=== PATIENT | female | born 1950 | race American Indian/Alaskan Native ===

== ENCOUNTER 2019-04-03 19:25 | Inpatient (IN) | payer MEDICARE ==
--- NOTE | 2019-04-03 20:31 | Emergency Department Report ---
HPI - General Chief Complaint: Altered Mental Status Time Seen by Provider: 04/03/19 20:06 - HPI HPI: 68-year-old female presents to the emergency department via EMS from home, with her daughter at bedside, with the complaint of altered mental status, confusion, and concern for some psychosis. The patient does not have any diagnosed psychiatric history but has been "committed" in the past when she was living in [place] for some psychiatric issues. The patient also has a history of substance abuse in which she will use cocaine. EMS found Ambien and insulin at the home. The patient is currently confused, AAO [address] but not time. She is a poor historian and is displaying some rambling tangential thoughts/speech. She does have a history of insulin-dependent diabetes. ED Past Medical Hx - Past Medical History Previous Medical History?: Yes Hx Hypertension: Yes Additional medical history: chronic pain - Surgical History Past Surgical History?: Yes Additional Surgical History: hysterectomy - Social History Smoking Status: Never Smoker - Medications Home Medications: Home Medications Medication Instructions Recorded Confirmed Last Taken Type Aspirin [Aspirin BABY CHEW TAB] 81 mg PO QDAY 04/02/13 04/02/13 Unknown History Ibuprofen [Motrin 400 MG tab] 400 mg PO TID PRN #15 tablet 04/02/13 Unknown Rx Rosuvastatin (Nf) [Crestor] 10 mg PO QHS 04/02/13 04/02/13 Unknown History Sitagliptin Phos/Metformin HCl 1 tab PO QDAY 04/02/13 04/02/13 Unknown History [Janumet XR 50-500 mg] diazePAM TAB [Valium] 5 mg PO TID PRN #15 tablet 04/02/13 Unknown Rx oxyCODONE /ACETAMINOPHEN [Percocet 1 tab PO Q6HR PRN #15 tablet 04/02/13 Unknown Rx 5/325 mg] ED Review of Systems ROS: Stated complaint: AMS Other details as noted in HPI Comment: Unobtainable due to pts medical conditions Physical Exam - Physical Exam Vital Signs: Vital Signs 04/03/19 19:38 Temperature 99.2 F Pulse Rate 103 H Respiratory 22 Rate Blood Pressure 136/85 O2 Sat by Pulse 96 Oximetry Physical Exam: GENERAL: The patient is well-developed well-nourished. HENT: Normocephalic. Atraumatic. Patient has moist mucous membranes. EYES: Extraocular motions are intact. Pupils equal reactive to light bilaterally. NECK: Supple. Trachea is midline. CHEST/LUNGS: Clear to auscultation. There is no respiratory distress noted. HEART/CARDIOVASCULAR: Regular. There is no tachycardia. There is no murmur. ABDOMEN: Abdomen is soft, nontender. Patient has normal bowel sounds. There is no abdominal distention. SKIN: Skin is warm and dry. NEURO: The patient is awake and cooperative. They'll [address] but not time. No facial asymmetry. No pronator drift. No dysmetria. MUSCULOSKELETAL: There is no tenderness or deformity. There is no limitation range of motion. There is no evidence of acute injury. PSYCH: Patient has some rambling tangential thoughts and speech. ED Course Vital Signs 04/03/19 19:38 Temperature 99.2 F Pulse Rate 103 H Respiratory 22 Rate Blood Pressure 136/85 O2 Sat by Pulse 96 Oximetry - Reevaluation(s) Reevaluation #1: 04/04/19 00:06 Lab Results 04/03/19 04/03/19 04/03/19 Range/Units 20:26 20:26 20:26 WBC 8.1 (4.5-11.0) K/mm3 RBC 4.43 (3.65-5.03) M/mm3 Hgb 12.1 (10.1-14.3) gm/dl Hct 37.0 (30.3-42.9) % MCV 84 (79-97) fl MCH 27 L (28-32) pg MCHC 33 (30-34) % RDW 14.5 (13.2-15.2) % Plt Count 204 (140-440) K/mm3 Lymph % (Auto) 35.8 H (13.4-35.0) % [place] % (Auto) 8.2 H (0.0-7.3) % Eos % (Auto) 1.6 (0.0-4.3) % Baso % (Auto) 0.5 (0.0-1.8) % Lymph # 2.9 (1.2-5.4) K/mm3 [place] # 0.7 (0.0-0.8) K/mm3 Eos # 0.1 (0.0-0.4) K/mm3 Baso # 0.0 (0.0-0.1) K/mm3 Seg Neutrophils % 53.9 (40.0-70.0) % Seg Neutrophils # 4.4 (1.8-7.7) K/mm3 Sodium 137 (137-145) mmol/L Potassium 5.9 H (3.6-5.0) mmol/L Chloride 105.8 (98-107) mmol/L Carbon Dioxide 21 L (22-30) mmol/L Anion Gap 16 mmol/L BUN 20 H (7-17) mg/dL Creatinine 1.6 H (0.7-1.2) mg/dL Estimated GFR 39 ml/min BUN/Creatinine Ratio 13 % Glucose 136 H (65-100) mg/dL Calcium 9.3 (8.4-10.2) mg/dL Total Bilirubin (0.1-1.2) mg/dL Direct Bilirubin (0-0.2) mg/dL Indirect Bilirubin mg/dL AST (5-40) units/L ALT (7-56) units/L Alkaline Phosphatase (35-129) units/L Ammonia 56.0 (25-60) umol/L Troponin T (0.00-0.029) ng/mL Total Protein (6.3-8.2) g/dL Albumin (3.9-5) g/dL Albumin/Globulin Ratio % TSH (0.270-4.200) mlU/mL Salicylates (2.8-20.0) mg/dL Acetaminophen (10.0-30.0) ug/mL Plasma/Serum Alcohol (0-0.07) % 04/03/19 04/03/19 04/03/19 Range/Units 20:26 20:26 20:26 WBC (4.5-11.0) K/mm3 RBC (3.65-5.03) M/mm3 Hgb (10.1-14.3) gm/dl Hct (30.3-42.9) % MCV (79-97) fl MCH (28-32) pg MCHC (30-34) % RDW (13.2-15.2) % Plt Count (140-440) K/mm3 Lymph % (Auto) (13.4-35.0) % [place] % (Auto) (0.0-7.3) % Eos % (Auto) (0.0-4.3) % Baso % (Auto) (0.0-1.8) % Lymph # (1.2-5.4) K/mm3 [place] # (0.0-0.8) K/mm3 Eos # (0.0-0.4) K/mm3 Baso # (0.0-0.1) K/mm3 Seg Neutrophils % (40.0-70.0) % Seg Neutrophils # (1.8-7.7) K/mm3 Sodium (137-145) mmol/L Potassium (3.6-5.0) mmol/L Chloride (98-107) mmol/L Carbon Dioxide (22-30) mmol/L Anion Gap mmol/L BUN (7-17) mg/dL Creatinine (0.7-1.2) mg/dL Estimated GFR ml/min BUN/Creatinine Ratio % Glucose (65-100) mg/dL Calcium (8.4-10.2) mg/dL Total Bilirubin 0.40 (0.1-1.2) mg/dL Direct Bilirubin < 0.2 (0-0.2) mg/dL Indirect Bilirubin 0.2 mg/dL AST 43 H (5-40) units/L ALT 25 (7-56) units/L Alkaline Phosphatase 54 (35-129) units/L Ammonia (25-60) umol/L Troponin T < 0.010 (0.00-0.029) ng/mL Total Protein 8.0 (6.3-8.2) g/dL Albumin 4.0 (3.9-5) g/dL Albumin/Globulin Ratio 1.0 % TSH 0.026 L (0.270-4.200) mlU/mL Salicylates < 0.3 L (2.8-20.0) mg/dL Acetaminophen (10.0-30.0) ug/mL Plasma/Serum Alcohol (0-0.07) % 04/03/19 04/03/19 Range/Units 20:26 20:26 WBC (4.5-11.0) K/mm3 RBC (3.65-5.03) M/mm3 Hgb (10.1-14.3) gm/dl Hct (30.3-42.9) % MCV (79-97) fl MCH (28-32) pg MCHC (30-34) % RDW (13.2-15.2) % Plt Count (140-440) K/mm3 Lymph % (Auto) (13.4-35.0) % [place] % (Auto) (0.0-7.3) % Eos % (Auto) (0.0-4.3) % Baso % (Auto) (0.0-1.8) % Lymph # (1.2-5.4) K/mm3 [place] # (0.0-0.8) K/mm3 Eos # (0.0-0.4) K/mm3 Baso # (0.0-0.1) K/mm3 Seg Neutrophils % (40.0-70.0) % Seg Neutrophils # (1.8-7.7) K/mm3 Sodium (137-145) mmol/L Potassium (3.6-5.0) mmol/L Chloride (98-107) mmol/L Carbon Dioxide (22-30) mmol/L Anion Gap mmol/L BUN (7-17) mg/dL Creatinine (0.7-1.2) mg/dL Estimated GFR ml/min BUN/Creatinine Ratio % Glucose (65-100) mg/dL Calcium (8.4-10.2) mg/dL Total Bilirubin (0.1-1.2) mg/dL Direct Bilirubin (0-0.2) mg/dL Indirect Bilirubin mg/dL AST (5-40) units/L ALT (7-56) units/L Alkaline Phosphatase (35-129) units/L Ammonia (25-60) umol/L Troponin T (0.00-0.029) ng/mL Total Protein (6.3-8.2) g/dL Albumin (3.9-5) g/dL Albumin/Globulin Ratio % TSH (0.270-4.200) mlU/mL Salicylates (2.8-20.0) mg/dL Acetaminophen < 5.0 L (10.0-30.0) ug/mL Plasma/Serum Alcohol < 0.01 (0-0.07) % ED Medical Decision Making - Lab Data Result diagrams: 04/03/19 20:26 04/03/19 20:26 - EKG Data -: EKG Interpreted by Tn EKG shows normal: sinus rhythm, axis, intervals, QRS complexes, ST-T waves Rate: normal - EKG Data When compared to previous EKG there are: previous EKG unavailable Interpretation: normal EKG - Radiology Data Radiology results: report reviewed CT of the head does not show any acute intracranial process including no ischemia, shift, mass, bleeding or skull fracture. - Medical Decision Making This patient was brought in after she was found altered and on the ground. She is currently AAO 2 to person and placement at time. Patient has some undiagnosed psychiatric history as she has been committed to psychiatric facilities in [place]. Patient was found by her daughter responding to some internal stimuli. The patient does admit to some hallucinations. She also has some rambling tangential thoughts and speech. There is no focal motor or sensory or lateralizing deficits seen. CT scan of the head without contrast does not show any bleed, shift, mass, ischemia, or any other acute process. Allegedly she also has a history of some cocaine abuse but her UDS was negative. Labs show some renal insufficiency and hyperkalemia. Given some Kayexalate. W hile the patient does appear to require a psychiatric assessment, I am unable to medically clear her secondary to the altered mental status and renal insufficiency, which may be acute. Patient will be admitted to the hospital for further evaluation and treatment and was accepted for admission by the hospitalist, Dr. Rivera. - Differential Diagnosis substance abuse, psychosis, CVA, TIA, dysrhythmia Critical Care Time: No Critical care attestation.: If time is entered above; I have spent that time in minutes in the direct care of this critically ill patient, excluding procedure time. ED Disposition Clinical Impression: Hyperkalemia Altered mental status Qualifiers: Altered mental status type: unspecified Qualified Code(s): R41.82 - Altered mental status, unspecified Psychosis Qualifiers: Psychosis type: unspecified psychosis type Qualified Code(s): F29 - Unspecified psychosis not due to a substance or known physiological condition Acute renal failure Qualifiers: Acute renal failure type: unspecified Qualified Code(s): N17.9 - Acute kidney failure, unspecified Disposition: OP ADMIT IP TO THIS HOSP Is pt being admited?: Yes Condition: Fair Time of Disposition: 00:08
[2019-04-03 20:48] LABS: Basophils % (Auto) 0.5 % (0.0-1.8); Eosinophils # (Auto) 0.1 K/mm3 (0.0-0.4); Eosinophils % (Auto) 1.6 % (0.0-4.3); Hemoglobin 12.1 gm/dl (10.1-14.3); Lymphocytes # (Auto) 2.9 K/mm3 (1.2-5.4); Lymphocytes % (Auto) 35.8 % (13.4-35.0); Mean Corpuscular HGB Conc 33 % (30-34); Mean Corpuscular Volume 84 fl (79-97); Monocytes # (Auto) 0.7 K/mm3 (0.0-0.8); Monocytes % (Auto) 8.2 % (0.0-7.3); Platelet Count 204 K/mm3 (140-440); Red Blood Count 4.43 M/mm3 (3.65-5.03); Red Cell Distribution Width 14.5 % (13.2-15.2)
[2019-04-03 21:01] LABS: Calcium 9.3 mg/dL (8.4-10.2)
[2019-04-03 21:05] LABS: Alanine Aminotransferase 25 units/L (7-56)
[2019-04-03 21:07] LABS: Bilirubin,Direct < 0.2 mg/dL (0-0.2)
--- NOTE | 2019-04-03 21:27 | Cat Scan Report ---
CT head/brain wo con INDICATION: Altered mental status. TECHNIQUE: Routine CT head without contrast. All CT scans at this location are performed using CT dos e reduction for ALARA by means of automated exposure control. COMPARISON: None. FINDINGS: BRAIN / INTRACRANIAL CONTENTS: No acute hemorrhage, mass effect, midline shift, or hydrocephalus. No appreciable acute large territorial or lacunar infarct. No chronic infarct or focal atrophy. Normal b rain volume and ventricular/sulcal size for age. ORBITS: No significant abnormality of visualized orbits. SINUSES / MASTOIDS: There is a tiny mucous retention cyst in the left maxillary sinus. ADDITIONAL FINDINGS: None. IMPRESSION: 1. No acute intracranial abnormality. Signer Name: Rudy Cruz MD Signed: 04/03/2019 9:22 PM Workstation Name: [id number]
[2019-04-03] MEDS ORDERED: ONDANSETRON 4 MG/2 ML INJ IV PRN (23:01)
[2019-04-03 23:09] LABS: Bilirubin,Urine MOD (Negative); Blood,Urine NEG (Negative); Color,Urine Yellow (Yellow); Mucus,Urine FEW /HPF; Protein,Urine <15 mg/dL mg/dL (Negative); RBC,Urine < 1.0 /HPF (0.0-6.0)
[2019-04-03 23:10] LABS: Ictotest,Urine Positive (Negative)
--- NOTE | 2019-04-03 23:10 | History and Physical Report ---
<CHETAN ESQUIVEL - Last Filed: 04/04/19 04:35> History of Present Illness Date of examination: 04/03/19 Date of admission: 04/03/19 Chief complaint: acute encephalopathy History of present illness: Patient is a 68-year-old -[place] female presents to the emergency department with daughter. Daughter no longer bedside but reported altered mental status, confusion, and psychosis in patient. Per daughter the patient has an undiagnosed psychiatric history and has been committed in the past. Per daughter patient also has a history of substance abuse and cocaine use. Patient denies tobacco, alcohol, and current substance usage. Denies having used cocaine in the past, reports only marijuana usage in past. Patient reports only taking lodine for pain, 400 mg twice a day. Per ED report EMS found Ambien insulin patient's home. Per ED report daughter reports seeing a powdery substance around mother's nose. Urine drug screen negative for all substances and serum alcohol level normal. On exam patient is oriented to person and time. She does display somewhat rambling, unfocused thoughts/speech. She has a history of hypertension, hyperlipidemia, and diabetes. Past History Past Medical History: diabetes, hypertension, hyperlipidemia Social history: lives with family, other (history of cocaine abuse per family, patient reports only history of marijuana use) Medications and Allergies Allergies Allergy/AdvReac Type Severity Reaction Status Date / Time codeine Allergy Rash Verified 04/02/13 11:07 Home Medications Medication Instructions Recorded Confirmed Last Taken Type Aspirin [Aspirin BABY CHEW TAB] 81 mg PO QDAY 04/02/13 04/02/13 Unknown History Ibuprofen [Motrin 400 MG tab] 400 mg PO TID PRN #15 tablet 04/02/13 Unknown Rx Rosuvastatin (Nf) [Crestor] 10 mg PO QHS 04/02/13 04/02/13 Unknown History Sitagliptin Phos/Metformin HCl 1 tab PO QDAY 04/02/13 04/02/13 Unknown History [Janumet XR 50-500 mg] diazePAM TAB [Valium] 5 mg PO TID PRN #15 tablet 04/02/13 Unknown Rx oxyCODONE /ACETAMINOPHEN [Percocet 1 tab PO Q6HR PRN #15 tablet 04/02/13 Unknown Rx 5/325 mg] Active Meds: Active Medications Acetaminophen (Tylenol) 650 mg PO Q4H PRN PRN Reason: Pain MILD(1-3)/Fever >100.5/WILKINSON Ondansetron HCl (Zofran) 4 mg IV Q8H PRN PRN Reason: Nausea And Vomiting Sodium Chloride (Sodium Chloride Flush Syringe 10 Ml) 10 ml IV BID ANDREW Sodium Chloride (Sodium Chloride Flush Syringe 10 Ml) 10 ml IV PRN PRN PRN Reason: LINE FLUSH Review of Systems Constitutional: no fever, no chills, no sweats Cardiovascular: no chest pain, no palpitations Respiratory: no cough, no shortness of breath Gastrointestinal: no nausea, no vomiting, no diarrhea Musculoskeletal: low back pain (patient reporting pain in multiple locations but unable to get a focused answer as to where ), muscle weakness, other (patient reports a fall today, unable to give specifics of event ) Integumentary: other (patient has redness on face ) Neurological: weakness, lack of coordination, other (daughter reports change in mentation ) Exam - Constitutional Vitals: Temp Pulse Resp BP Pulse Ox 99.2 F 103 H 22 136/85 96 04/03/19 19:38 04/03/19 19:38 04/03/19 19:38 04/03/19 19:38 04/03/19 19:38 General appearance: Present: no acute distress, well-nourished - EENT Eyes: Present: PERRL, EOM intact - Respiratory Respiratory effort: normal Respiratory: bilateral: CTA - Cardiovascular Rhythm: regular - Extremities Extremities: pulses intact, No edema Peripheral Pulses: within normal limits - Abdominal General gastrointestinal: Present: soft - Rectal Rectal Exam: deferred - Integumentary Integumentary: Present: rash (redness to cheeks) - Musculoskeletal Musculoskeletal: strength equal bilaterally, generalized weakness - Psychiatric Psychiatric: no appropriate mood/affect (patient orientedx3. Has a rambling pattern of speech and gives unfocused answers to questions. ) Results - Labs CBC & Chem 7: 04/03/19 20:26 04/03/19 20:26 Labs: Laboratory Last Values WBC 8.1 K/mm3 (4.5-11.0) 04/03/19 20:26 RBC 4.43 M/mm3 (3.65-5.03) 04/03/19 20: Hgb 12.1 gm/dl (10.1-14.3) 04/03/19 20: Hct 37.0 % (30.3-42.9) 04/03/19 20: MCV 84 fl (79-97) 04/03/19 20: MCH 27 pg (28-32) L 04/03/19 20: MCHC 33 % (30-34) 04/03/19 20: RDW 14.5 % (13.2-15.2) 04/03/19 20: Plt Count 204 K/mm3 (140-440) 04/03/19 20: Lymph % (Auto) 35.8 % (13.4-35.0) H 04/03/19 20: [place] % (Auto) 8.2 % (0.0-7.3) H 04/03/19 20: Eos % (Auto) 1.6 % (0.0-4.3) 04/03/19 20: Baso % (Auto) 0.5 % (0.0-1.8) 04/03/19 20: Lymph # 2.9 K/mm3 (1.2-5.4) 04/03/19 20: [place] # 0.7 K/mm3 (0.0-0.8) 04/03/19 20: Eos # 0.1 K/mm3 (0.0-0.4) 04/03/19 20: Baso # 0.0 K/mm3 (0.0-0.1) 04/03/19 20: Seg Neutrophils % 53.9 % (40.0-70.0) 04/03/19 20: Seg Neutrophils # 4.4 K/mm3 (1.8-7.7) 04/03/19 20: Sodium 137 mmol/L (137-145) 04/03/19 20: Potassium 5.9 mmol/L (3.6-5.0) H 04/03/19 20: Chloride 105.8 mmol/L (98-107) 04/03/19 20: Carbon Dioxide 21 mmol/L (22-30) L 04/03/19 20:26 Anion Gap 16 mmol/L 04/03/19 20: BUN 20 mg/dL (7-17) H 04/03/19 20: Creatinine 1.6 mg/dL (0.7-1.2) H 04/03/19 20: Estimated GFR 39 ml/min 04/03/19 20: BUN/Creatinine Ratio 13 % 04/03/19 20: Glucose 136 mg/dL (65-100) H 04/03/19 20: Calcium 9.3 mg/dL (8.4-10.2) 04/03/19 20: Total Bilirubin 0.40 mg/dL (0.1-1.2) 04/03/19 20: Direct Bilirubin < 0.2 mg/dL (0-0.2) 04/03/19 20: Indirect Bilirubin 0.2 mg/dL 04/03/19: AST 43 units/L (5-40) H 04/03/19: ALT 25 units/L (7-56) 04/03/19 20: Alkaline Phosphatase 54 units/L (35-129) 04/03/19 20: Ammonia 56.0 umol/L (25-60) 04/03/19 20: Troponin T < 0.010 ng/mL (0.00-0.029) 04/03/19 20: Total Protein 8.0 g/dL (6.3-8.2) 04/03/19 20: Albumin 4.0 g/dL (3.9-5) 04/03/19 20: Albumin/Globulin Ratio 1.0 % 04/03/19 20: TSH 0.026 mlU/mL (0.270-4.200) L 04/03/19 20: Salicylates < 0.3 mg/dL (2.8-20.0) L 04/03/19 20: Acetaminophen < 5.0 ug/mL (10.0-30.0) L 04/03/19 20: Plasma/Serum Alcohol < 0.01 % (0-0.07) 04/03/19 20: - Imaging and Cardiology CT Scan - head: report reviewed, image reviewed (BRAIN / INTRACRANIAL CONTENTS: No acute hemorrhage, mass effect, midline shift, or hydrocephalus. ) Assessment and Plan Assessment and plan: Acute encephalopathy vs psychosis? -psych consult - undiagnosed mental health history, previously committed to facility in [place] -CT head negative - urine drug screen negative - serum alcohol level normal Hyperkalemia -recheck K level after kayexalate given, -15gm ordered x1 in Ed - K+ = 5.9 Renal insufficiency possible d/t dehydration - Creatinine 1.6 - BUN 20 - start NS at 100 ml/hr Diabetes mellitis -on oral medications, will hold inpatient d/t renal insufficiency - ACHS accuchecks - start on sliding scale insulin Hyperlipidemia - restart crestor Hypertension - will start on home regimen once home med rec done VTE prophylaxis?: Chemical (lovenox) <PING GREENE - Last Filed: 04/04/19 04:59> History of Present Illness Date of admission: 04/03/19 23:01 Medications and Allergies Active Meds: Active Medications Acetaminophen (Tylenol) 650 mg PO Q4H PRN PRN Reason: Pain MILD(1-3)/Fever >100.5/WILKINSON Aspirin (Baby Aspirin) 81 mg PO QDAY ANDREW Atorvastatin Calcium (Lipitor) 20 mg PO QHS ANDREW Dextrose (D50w (25gm) Syringe) 50 ml IV Q30MIN PRN PRN Reason: Hypoglycemia Enoxaparin Sodium (Enoxaparin) 40 mg SUB-Q QDAY@1000 ANDREW Famotidine (Pepcid) 20 mg PO BID ANDREW Sodium Chloride (Nacl 0.9% 1000 Ml) 1,000 mls @ 125 mls/hr IV DIRECT ANDREW Insulin Human Lispro (Humalog) 0 unit SUB-Q ACHS ANDREW; Protocol Ondansetron HCl (Zofran) 4 mg IV Q8H PRN PRN Reason: Nausea And Vomiting Sodium Chloride (Sodium Chloride Flush Syringe 10 Ml) 10 ml IV BID ANDREW Sodium Chloride (Sodium Chloride Flush Syringe 10 Ml) 10 ml IV PRN PRN PRN Reason: LINE FLUSH Exam - Constitutional Vitals: Temp Pulse Resp BP Pulse Ox 99.2 F 89 16 147/84 100 04/03/19 19:38 04/04/19 02:42 04/04/19 00:59 04/04/19 00:59 04/04/19 00:59 Results - Labs CBC & Chem 7: 04/03/19 20:26 04/03/19 20:26 Labs: Laboratory Last Values WBC 8.1 K/mm3 (4.5-11.0) 04/03/19 20:26 RBC 4.43 M/mm3 (3.65-5.03) 04/03/19 20: Hgb 12.1 gm/dl (10.1-14.3) 04/03/19 20: Hct 37.0 % (30.3-42.9) 04/03/19 20: MCV 84 fl (79-97) 04/03/19 20: MCH 27 pg (28-32) L 04/03/19 20: MCHC 33 % (30-34) 04/03/19 20: RDW 14.5 % (13.2-15.2) 04/03/19 20: Plt Count 204 K/mm3 (140-440) 04/03/19 20: Lymph % (Auto) 35.8 % (13.4-35.0) H 04/03/19 20: [place] % (Auto) 8.2 % (0.0-7.3) H 04/03/19 20: Eos % (Auto) 1.6 % (0.0-4.3) 04/03/19 20: Baso % (Auto) 0.5 % (0.0-1.8) 04/03/19 20: Lymph # 2.9 K/mm3 (1.2-5.4) 04/03/19 20: [place] # 0.7 K/mm3 (0.0-0.8) 04/03/19 20: Eos # 0.1 K/mm3 (0.0-0.4) 04/03/19 20: Baso # 0.0 K/mm3 (0.0-0.1) 04/03/19 20: Seg Neutrophils % 53.9 % (40.0-70.0) 04/03/19 20: Seg Neutrophils # 4.4 K/mm3 (1.8-7.7) 04/03/19 20: Sodium 137 mmol/L (137-145) 04/03/19 20: Potassium 5.9 mmol/L (3.6-5.0) H 04/03/19 20: Chloride 105.8 mmol/L (98-107) 04/03/19 20: Carbon Dioxide 21 mmol/L (22-30) L 04/03/19 20:26 Anion Gap 16 mmol/L 04/03/19 20:26 BUN 20 mg/dL (7-17) H 04/03/19 20:26 Creatinine 1.6 mg/dL (0.7-1.2) H 04/03/19 20:26 Estimated GFR 39 ml/min 04/03/19 20: BUN/Creatinine Ratio 13 % 04/03/19 20:26 Glucose 136 mg/dL (65-100) H 04/03/19 20:26 POC Glucose 187 (70-105) H 04/04/19 03:24 Calcium 9.3 mg/dL (8.4-10.2) 04/03/19 20: Total Bilirubin 0.40 mg/dL (0.1-1.2) 04/03/19 20: Direct Bilirubin < 0.2 mg/dL (0-0.2) 04/03/19 20: Indirect Bilirubin 0.2 mg/dL 04/03/19 20:26 AST 43 units/L (5-40) H 04/03/19 20:26 ALT 25 units/L (7-56) 04/03/19 20:26 Alkaline Phosphatase 54 units/L (35-129) 04/03/19 20: Ammonia 56.0 umol/L (25-60) 04/03/19 20: Troponin T < 0.010 ng/mL (0.00-0.029) 04/03/19 20:26 Total Protein 8.0 g/dL (6.3-8.2) 04/03/19 20: Albumin 4.0 g/dL (3.9-5) 04/03/19 20: Albumin/Globulin Ratio 1.0 % 04/03/19 20: TSH 0.026 mlU/mL (0.270-4.200) L 04/03/19 20:26 Urine Color Yellow (Yellow) 04/03/19 Unknown Urine Turbidity Clear (Clear) 04/03/19 Unknown Urine pH 5.0 (5.0-7.0) 04/03/19 Unknown Ur Specific [place] 1.011 (1.003-1.030) 04/03/19 Unknown Urine Protein <15 mg/dl mg/dL (Negative) 04/03/19 Unknown Urine Glucose (UA) Neg mg/dL (Negative) 04/03/19 Unknown Urine Ketones Neg mg/dL (Negative) 04/03/19 Unknown Urine Blood Neg (Negative) 04/03/19 Unknown Urine Nitrite Neg (Negative) 04/03/19 Unknown Urine Bilirubin Mod (Negative) 04/03/19 Unknown Urine Ictotest Positive (Negative) 04/03/19 Unknown Urine Urobilinogen 4.0 mg/dL (<2.0) 04/03/19 Unknown Ur Leukocyte Esterase Neg (Negative) 04/03/19 Unknown Urine WBC (Auto) 1.0 /HPF (0.0-6.0) 04/03/19 Unknown Urine RBC (Auto) < 1.0 /HPF (0.0-6.0) 04/03/19 Unknown U Epithel Cells (Auto) 1.0 /HPF (0-13.0) 04/03/19 Unknown Urine Mucus Few /HPF 04/03/19 Unknown Salicylates < 0.3 mg/dL (2.8-20.0) L 04/03/19 20:26 Urine Opiates Screen Presumptive negative 04/03/19 Unknown Urine Methadone Screen Presumptive negative 04/03/19 Unknown Acetaminophen < 5.0 ug/mL (10.0-30.0) L 04/03/19 20:26 Ur Barbiturates Screen Presumptive negative 04/03/19 Unknown Ur Phencyclidine Scrn Presumptive negative 04/03/19 Unknown Ur Amphetamines Screen Presumptive negative 04/03/19 Unknown U Benzodiazepines Scrn Presumptive negative 04/03/19 Unknown Urine Cocaine Screen Presumptive negative 04/03/19 Unknown U Marijuana (THC) Screen Presumptive negative 04/03/19 Unknown Drugs of Abuse Note Disclamer 04/03/19 Unknown Plasma/Serum Alcohol < 0.01 % (0-0.07) 04/03/19 20:26 Assessment and Plan Assessment and plan: 68-year-old with a history of hypertension, diabetes, hyperlipidemiav and depression was brought to the emergency room by her daughter because she's been acting strange. She stated that her mother is talking out of her head, talking to people next to her or not doing token today. Will. She has been committed several times in [place], she does not know a psych diagnosis to the patient carries. Consult psych, follow-up potassium level and start fluids.
[2019-04-03] MEDS ORDERED: SODIUM POLYSTYRENE 15 GM/60 ML ORAL LIQD PO ONE (23:11)
[2019-04-03 23:15] LABS: Amphetamine Screen,Urine PRESUMPTIVE NEGATIVE; Benzodiazepines Screen,Urine PRESUMPTIVE NEGATIVE; Cannabinoid Screen,Urine PRESUMPTIVE NEGATIVE; Cocaine Screen,Urine PRESUMPTIVE NEGATIVE; Methadone Screen,Urine PRESUMPTIVE NEGATIVE; Opiate Screen,Urine PRESUMPTIVE NEGATIVE
[2019-04-04] MEDS ORDERED: SODIUM POLYSTYRENE 15 GM/60 ML ORAL LIQD ONE (01:23)
[2019-04-04] MEDS ORDERED: DEXTROSE 50% IN WATER (25GM) 50 ML SYRINGE IV PRN (01:50)
[2019-04-04] MEDS ORDERED: SODIUM CHLORIDE 0.9% 1000 ML 1,000 ML IV SCH (02:00)
[2019-04-04] MEDS ORDERED: diazePAM 5 MG TAB PO PRN (04:57)
[2019-04-04] MEDS: ENOXAPARIN 40 MG/0.4 ML INJ SUB-Q SCH (09:24)
[2019-04-04] MEDS: INSULIN LISPRO 100 UNIT/ML SUB-Q SCH ×4 (09:25→22:22)
[2019-04-04] MEDS: SODIUM CHLORIDE 0.9% 1000 ML 1,000 ML IV SCH ×2 (09:25→22:18)
[2019-04-04] MEDS: FAMOTIDINE 20 MG TAB PO SCH ×2 (09:25→22:18)
[2019-04-04] MEDS: ASPIRIN 81 MG TAB CHEW PO SCH (09:25)
[2019-04-04 10:04] LABS: BUN/Creatinine Ratio 17; Blood Urea Nitrogen 19 mg/dL (7-17); Calcium 9.6 mg/dL (8.4-10.2); Hemolysis Index 9
[2019-04-04] MEDS ORDERED: FLU VACC QUAD 2019-20 (3 YR UP)/PF 60 MCG/0.5 ML SYRINGE IM ONE (12:00)
--- NOTE | 2019-04-04 14:20 | Progress Note ---
Assessment and Plan Assessment and plan: Acute encephalopathy vs psychosis - Mental has consult placed - Patient was alert and oriented this morning - No suicidal or homicidal ideation Hyperkalemia - Patient was given Kayexalate - Potassium this morning was normal KELLY due to vasomotor nephropathy - Creatinine 1.6 on admission and 1.1 this morning - Resolved Diabetes mellitis - Sliding-scale insulin coverage, ADA diet, accucheck, adjust insulin as needed Hyperlipidemia - restart crestor Hypertension - Patient started on amlodipine monitor and adjust as needed DVT prophylaxis -On Lovenox Disposition; after psych clearance. patient is medically stable. History Interval history: Patient was seen and followed this morning, patient didn't have any complaints. Denied any suicidal ideation. Hospitalist Physical - Physical exam Narrative exam: Not in cardiopulmonary distress. The patient appeared well nourished and normally developed. Vital signs as documented. Head exam is unremarkable. No scleral icterus . Neck is without jugular venous distension, thyromegaly, or carotid bruits. Lungs are clear to auscultation. Cardiac exam reveals regular rate and Rhythm. First and second heart sounds normal. No murmurs, rubs or gallops. Abdominal exam reveals normal bowel sounds, no masses, no organomegaly and no ao rtic enlargement. Extremities are nonedematous and both femoral and pedal pulses are normal. .NET PROGRAMMER: Alert and oriented 3. No focal weakness. - Constitutional Vitals: Temp Pulse Resp BP Pulse Ox 97.9 F 107 H 18 170/90 97 04/04/19 08:18 04/04/19 10:00 04/04/19 08:18 04/04/19 08:18 04/04/19 08:18 General appearance: Present: no acute distress, well-nourished Results - Labs CBC & Chem 7: 04/03/19 20:26 04/04/19 07:54 Labs: Laboratory Last Values WBC 8.1 K/mm3 (4.5-11.0) 04/03/19 20: RBC 4.43 M/mm3 (3.65-5.03) 04/03/19 20:26 Hgb 12.1 gm/dl (10.1-14.3) 04/03/19 20: Hct 37.0 % (30.3-42.9) 04/03/19 20: MCV 84 fl (79-97) 04/03/19 20: MCH 27 pg (28-32) L 04/03/19 20: MCHC 33 % (30-34) 04/03/19 20: RDW 14.5 % (13.2-15.2) 04/03/19 20:26 Plt Count 204 K/mm3 (140-440) 04/03/19 20: Lymph % (Auto) 35.8 % (13.4-35.0) H 04/03/19 20:26 [place] % (Auto) 8.2 % (0.0-7.3) H 04/03/19 20:26 Eos % (Auto) 1.6 % (0.0-4.3) 04/03/19 20: Baso % (Auto) 0.5 % (0.0-1.8) 04/03/19 20: Lymph # 2.9 K/mm3 (1.2-5.4) 04/03/19 20: [place] # 0.7 K/mm3 (0.0-0.8) 04/03/19 20: Eos # 0.1 K/mm3 (0.0-0.4) 04/03/19 20: Baso # 0.0 K/mm3 (0.0-0.1) 04/03/19 20: Seg Neutrophils % 53.9 % (40.0-70.0) 04/03/19 20: Seg Neutrophils # 4.4 K/mm3 (1.8-7.7) 04/03/19 20:26 Sodium 141 mmol/L (137-145) 04/04/19 07:54 Potassium 4.1 mmol/L (3.6-5.0) D 04/04/19 07:54 Chloride 104.1 mmol/L (98-107) 04/04/19 07:54 Carbon Dioxide 23 mmol/L (22-30) 04/04/19 07:54 Anion Gap 18 mmol/L 04/04/19 07:54 BUN 19 mg/dL (7-17) H 04/04/19 07:54 Creatinine 1.1 mg/dL (0.7-1.2) 04/04/19 07:54 Estimated GFR > 60 ml/min 04/04/19 07:54 BUN/Creatinine Ratio 17 % 04/04/19 07:54 Glucose 162 mg/dL (65-100) H 04/04/19 07:54 POC Glucose 189 (70-105) H 04/04/19 12:47 Hemoglobin A1c 7.8 % (4-6) H 04/04/19 07:54 Calcium 9.6 mg/dL (8.4-10.2) 04/04/19 07:54 Total Bilirubin 0.40 mg/dL (0.1-1.2) 04/03/19 20:26 Direct Bilirubin < 0.2 mg/dL (0-0.2) 04/03/19 20:26 Indirect Bilirubin 0.2 mg/dL 04/03/19 20:26 AST 43 units/L (5-40) H 04/03/19 20:26 ALT 25 units/L (7-56) 04/03/19 20:26 Alkaline Phosphatase 54 units/L (35-129) 04/03/19 20:26 Ammonia 56.0 umol/L (25-60) 04/03/19 20:26 Troponin T < 0.010 ng/mL (0.00-0.029) 04/03/19 20:26 Total Protein 8.0 g/dL (6.3-8.2) 04/03/19 20:26 Albumin 4.0 g/dL (3.9-5) 04/03/19 20:26 Albumin/Globulin Ratio 1.0 % 04/03/19 20:26 TSH 0.026 mlU/mL (0.270-4.200) L 04/03/19 20:26 Urine Color Yellow (Yellow) 04/03/19 Unknown Urine Turbidity Clear (Clear) 04/03/19 Unknown Urine pH 5.0 (5.0-7.0) 04/03/19 Unknown Ur Specific [place] 1.011 (1.003-1.030) 04/03/19 Unknown Urine Protein <15 mg/dl mg/dL (Negative) 04/03/19 Unknown Urine Glucose (UA) Neg mg/dL (Negative) 04/03/19 Unknown Urine Ketones Neg mg/dL (Negative) 04/03/19 Unknown Urine Blood Neg (Negative) 04/03/19 Unknown Urine Nitrite Neg (Negative) 04/03/19 Unknown Urine Bilirubin Mod (Negative) 04/03/19 Unknown Urine Ictotest Positive (Negative) 04/03/19 Unknown Urine Urobilinogen 4.0 mg/dL (<2.0) 04/03/19 Unknown Ur Leukocyte Esterase Neg (Negative) 04/03/19 Unknown Urine WBC (Auto) 1.0 /HPF (0.0-6.0) 04/03/19 Unknown Urine RBC (Auto) < 1.0 /HPF (0.0-6.0) 04/03/19 Unknown U Epithel Cells (Auto) 1.0 /HPF (0-13.0) 04/03/19 Unknown Urine Mucus Few /HPF 04/03/19 Unknown Salicylates < 0.3 mg/dL (2.8-20.0) L 04/03/19 20:26 Urine Opiates Screen Presumptive negative 04/03/19 Unknown Urine Methadone Screen Presumptive negative 04/03/19 Unknown Acetaminophen < 5.0 ug/mL (10.0-30.0) L 04/03/19 20:26 Ur Barbiturates Screen Presumptive negative 04/03/19 Unknown Ur Phencyclidine Scrn Presumptive negative 04/03/19 Unknown Ur Amphetamines Screen Presumptive negative 04/03/19 Unknown U Benzodiazepines Scrn Presumptive negative 04/03/19 Unknown Urine Cocaine Screen Presumptive negative 04/03/19 Unknown U Marijuana (THC) Screen Presumptive negative 04/03/19 Unknown Drugs of Abuse Note Disclamer 04/03/19 Unknown Plasma/Serum Alcohol < 0.01 % (0-0.07) 04/03/19 20:26 Active Medications - Current Medications Current Medications: Generic Name Dose Route Start Last Admin Trade Name Freq PRN Reason Stop Dose Admin Acetaminophen 650 mg 04/03/19 23:01 Tylenol PO Q4H PRN Pain MILD(1-3)/Fever >100.5/WILKINSON Aspirin 81 mg 04/04/19 10:00 04/04/19 09:25 Baby Aspirin PO 81 mg QDAY ANDREW Administration Atorvastatin Calcium 20 mg 04/04/19 22:00 Lipitor PO QHS ANDREW Dextrose 50 ml 04/04/19 01:50 D50w (25gm) Syringe IV Q30MIN PRN Hypoglycemia Diazepam 5 mg 04/04/19 04:57 Valium PO TID PRN PAIN Enoxaparin Sodium 40 mg 04/04/19 10:00 04/04/19 09:24 Enoxaparin SUB-Q 40 mg QDAY@1000 ANDREW Administration Famotidine 20 mg 04/04/19 10:00 04/04/19 09:25 Pepcid PO 20 mg BID ANDREW Administration Sodium Chloride 1,000 mls @ 125 mls/hr 04/04/19 02:00 04/04/19 09:25 Nacl 0.9% 1000 Ml IV 125 mls/hr DIRECT ANDREW Administration Insulin Human Lispro 0 unit 04/04/19 07:30 04/04/19 12:49 Humalog SUB-Q 1 unit ACHS ANDREW Administration Protocol Ondansetron HCl 4 mg 04/03/19 23:01 04/04/19 09:27 Zofran IV 4 mg Q8H PRN Administration Nausea And Vomiting Sodium Chloride 10 ml 04/04/19 10:00 04/04/19 09:26 Sodium Chloride Flush Syringe 10 Ml IV 10 ml BID ANDREW Administration Sodium Chloride 10 ml 04/03/19 23:01 Sodium Chloride Flush Syringe 10 Ml IV PRN PRN LINE FLUSH Nutrition/Malnutrition Assess - Dietary Evaluation Nutrition/Malnutrition Findings: Nutrition Notes Start: 04/04/19 13:58 Freq: Status: Active Protocol: Document 04/04/19 13:58 SHERYL (Rec: 04/04/19 14:07 SHERYL [id number]) Nutrition Notes Need for Assessment generated from: MST Initial or Follow up Assessment Current Diagnosis Diabetes,Hypertension, Hyperlipidemia Other Pertinent Diagnosis AMS, h/o substance abuse Current Diet Cardiac/consistent CHO Labs/Tests BUN: 19 Pertinent Medications Reviewed Height 5 ft 4 in Weight 81.4 kg [place] Body Weight (kg) 54.54 BMI 30.8 Intake Prior to Admission Good Weight change and time frame Pt denied recent wt loss Weight Status Obese Subjective/Other Information Pt screend for MST. Pt with AMS at time of visit. Pt changed subject frequently during conversation with RD. Pt denied recent wt loss, N/V/ C/D, and decreased appetite. Per pt, she has a dieitian see sees through her PCP in [place]. Per pt she ate less than 50% of bfast tray, stating she does not like the food. Burn Absent Trauma Absent Minimum of two criteria No physical signs of malnutrition #1 Nutrition Diagnosis Inadequate oral intake Etiology Not liking hospital food As Evidenced by Signs and Symptoms Pt report of eating less than 50% of breakfast tray Is patient on ventilator? No Is Patient Ambulatory and/or Out of Bed Yes REE-([facility]-ambulatory/OOB) [ 2580.700 NUTR.[id number]] Calculation Used for Recommendations [facility] Additional Notes Pro needs: 81-98g/day (1-1.2 g /kg BW) Fluid needs: 1ml/kcal Nutrition Intervention Change Diet Order: Continue cardiac/consistent CHO diet Add Supplement/Snack (indicate name/kcal Glucerna daily /protein ) Provides kCal: 220 Provides Protein (gm) 10 Goal #1 Pt to consume at least 80% of energy and protein needs via PO and ONS intakes Anticipated Discharge Needs: cardiac/consistent CHO diet with ONS PRN Follow-Up By: 04/07/19 Additional Comments F/u for PO and ONS intakes
[2019-04-04] MEDS ORDERED: amLODIPine 10 MG TAB PO SCH (15:00)
--- NOTE | 2019-04-04 17:06 | Consultation ---
History of Present Illness - Reason for Consult Consult date: 04/04/19 Reason for consult: psychiatric evaluation - Chief Complaint Chief complaint: "I didn't come here for me." - History of Present Psychiatric Illness Ms. Diaz is a 68-year-old AA/F who was referred for psychiatric evaluation. The order was placed for altered mental status. She is alert but oriented to person and place only. She is not oriented to time or situation. She insists she is at the hospital because her aunt was sick. She states it is 1985 and in answering questions, she could not give a logical sequence. The solar resource assessor spoke with her daughter, Emily. She reported her mother was sitting down speaking to people, people who were not there. She was also observed crawling around on the floor on yesterday. Per daughter, pt was acting unlike herself and saying things that were weird. The daughter then called 911. She stated her mother has not been diagnosed previously however, the pt has been admitted to inpatient psych facilities numerous times in [place] for walking around naked and being physically aggressive towards others. Daughter stated she is not fully aware of the pts mental illness problems. Medications and Allergies Allergies Allergy/AdvReac Type Severity Reaction Status Date / Time codeine Allergy Rash Verified 04/02/13 11:07 Home Medications Medication Instructions Recorded Confirmed Last Taken Type Aspirin [Aspirin BABY CHEW TAB] 81 mg PO QDAY 04/02/13 04/05/19 04/05/19 10:27 History Ibuprofen [Motrin 400 MG tab] 400 mg PO TID PRN #15 tablet 04/02/13 04/05/19 Unknown Rx Rosuvastatin (Nf) [Crestor] 10 mg PO QHS 04/02/13 04/05/19 Unknown History Sitagliptin Phos/Metformin HCl 1 tab PO QDAY 04/02/13 04/05/19 Unknown History [Janumet XR 50-500 mg] diazePAM TAB [Valium] 5 mg PO TID PRN #15 tablet 04/02/13 04/05/19 Unknown Rx oxyCODONE /ACETAMINOPHEN [Percocet 1 tab PO Q6HR PRN #15 tablet 04/02/1304/05 Unknown Rx 5/325 mg] Active Meds: Active Medications Acetaminophen (Tylenol) 650 mg PO Q4H PRN PRN Reason: Pain MILD(1-3)/Fever >100.5/WILKINSON Amlodipine Besylate (Amlodipine) 10 mg PO QDAY [facility] Last Admin: 04/04/19 15:26 Dose: 10 mg Documented by: Aspirin (Baby Aspirin) 81 mg PO QDAY [facility] Last Admin: 04/04/19 09:25 Dose: 81 mg Documented by: Atorvastatin Calcium (Lipitor) 20 mg PO QHS [facility] Dextrose (D50w (25gm) Syringe) 50 ml IV Q30MIN PRN PRN Reason: Hypoglycemia Diazepam (Valium) 5 mg PO TID PRN PRN Reason: PAIN Enoxaparin Sodium (Enoxaparin) 40 mg SUB-Q QDAY@1000 [facility] Last Admin: 04/04/19 09:24 Dose: 40 mg Documented by: Famotidine (Pepcid) 20 mg PO BID [facility] Last Admin: 04/04/19 09:25 Dose: 20 mg Documented by: Sodium Chloride (Nacl 0.9% 1000 Ml) 1,000 mls @ 125 mls/hr IV DIRECT [facility] Last Admin: 04/04/19 09:25 Dose: 125 mls/hr Documented by: Insulin Human Lispro (Humalog) 0 unit SUB-Q ACHS [facility]; Protocol Last Admin: 04/04/19 12:49 Dose: 1 unit Documented by: Ondansetron HCl (Zofran) 4 mg IV Q8H PRN PRN Reason: Nausea And Vomiting Last Admin: 04/04/19 09:27 Dose: 4 mg Documented by: Sodium Chloride (Sodium Chloride Flush Syringe 10 Ml) 10 ml IV BID [facility] Last Admin: 04/04/19 09:26 Dose: 10 ml Documented by: Sodium Chloride (Sodium Chloride Flush Syringe 10 Ml) 10 ml IV PRN PRN PRN Reason: LINE FLUSH Past psychiatric history - Past Medical History Past Medical History: diabetes, hypertension, hyperlipidemia - past Psychiatric treatment and history psychiatric treatment history: probable history of insomnia and mental illness reports at least 2 hospitalizations. She states "Dr. Melgar is number 5." She reports going to [facility] and says he was good but she owes him money. Mental Status Exam - Vital signs Last Vital Signs Temp 97.9 F 04/04/19 16:36 Pulse 106 H 04/04/19 16:36 Resp 18 04/04/19 16:36 BP 156/93 04/04/19 16:36 Pulse Ox 97 04/04/19 16:36 - Exam Narrative exam: says the year is 1987 Orientation: place, person Affect: other (constricted) Mood: anxious Thought content: other (disorganized thought content and process) Thought Process: Disorganized, Disoriented Perceptions: none Speech: normal rate and pattern Concentration: distractible Motor activity: normal Level of consciousness: confused Memory: Recent Impaired Sleep Symptoms: Difficulty Falling Asleep (reports recent insomnia) Interaction: cooperative (she attempted to answer questions but required redirection. unable to complete MMSE) Results Result Diagrams: 04/03/19 20:26 04/04/19 07:54 Abnormal lab results 04/03/19 04/03/19 04/03/19 Range/Units 20:26 20: 20:26 MCH 27 L (28-32) pg Lymph % (Auto) 35.8 H (13.4-35.0) % [place] % (Auto) 8.2 H (0.0-7.3) % Potassium 5.9 H (3.6-5.0) mmol/L Carbon Dioxide 21 L (22-30) mmol/L BUN 20 H (7-17) mg/dL Creatinine 1.6 H (0.7-1.2) mg/dL Glucose 136 H (65-100) mg/dL POC Glucose (70-105) Hemoglobin A1c (4-6) % AST 43 H (5-40) units/L TSH (0.270-4.200) mlU/mL Salicylates (2.8-20.0) mg/dL Acetaminophen (10.0-30.0) ug/mL 04/03/19 04/03/19 04/03/19 Range/Units 20:26 20:26 20:26 MCH (28-32) pg Lymph % (Auto) (13.4-35.0) % [place] % (Auto) (0.0-7.3) % Potassium (3.6-5.0) mmol/L Carbon Dioxide (22-30) mmol/L BUN (7-17) mg/dL Creatinine (0.7-1.2) mg/dL Glucose (65-100) mg/dL POC Glucose (70-105) Hemoglobin A1c (4-6) % AST (5-40) units/L TSH 0.026 L (0.270-4.200) mlU/mL Salicylates < 0.3 L (2.8-20.0) mg/dL Acetaminophen < 5.0 L (10.0-30.0) ug/mL 04/04/19 04/04/19 04/04/19 Range/Units 03:24 07:54 07:54 MCH (28-32) pg Lymph % (Auto) (13.4-35.0) % [place] % (Auto) (0.0-7.3) % Potassium (3.6-5.0) mmol/L Carbon Dioxide (22-30) mmol/L BUN 19 H (7-17) mg/dL Creatinine (0.7-1.2) mg/dL Glucose 162 H (65-100) mg/dL POC Glucose 187 H (70-105) Hemoglobin A1c 7.8 H (4-6) % AST (5-40) units/L TSH (0.270-4.200) mlU/mL Salicylates (2.8-20.0) mg/dL Acetaminophen (10.0-30.0) ug/mL 04/04/19 04/04/19 04/04/19 Range/Units 08:29 12:47 16:47 MCH (28-32) pg Lymph % (Auto) (13.4-35.0) % [place] % (Auto) (0.0-7.3) % Potassium (3.6-5.0) mmol/L Carbon Dioxide (22-30) mmol/L BUN (7-17) mg/dL Creatinine (0.7-1.2) mg/dL Glucose (65-100) mg/dL POC Glucose 173 H 189 H 153 H (70-105) Hemoglobin A1c (4-6) % AST (5-40) units/L TSH (0.270-4.200) mlU/mL Salicylates (2.8-20.0) mg/dL Acetaminophen (10.0-30.0) ug/mL All other labs normal. Assessment and Plan Assessment and plan: Impression. Acute Encephalopathy. CHRONIC CONDITION NURSE attempted to reach daughter, Emily. She is currently disoriented but she mentions going to 5 psychiatrists in the past and had at least 2 hospitalizations. The timeline is unclear. She reports Dr. Melgar is her most recent psychiatrist and reports she takes clonazepam and amitriptyline. She cannot recall other medications. DDx: bipolar, schizophrenia, MDD with psychosis Recommendation/Plan: psych will follow up in 24 hours Recommend Delirium precautions below: 1. Frequently reorient patient and involve him/her in their care (simple e xplanations of procedures, tests, medications). 2. Lights on and shades open during daytime hours. 3. Write date and goals of care in a visible place. 4. Try to avoid unnecessary interruptions to sleep during nighttime hours. 5. Obtain glasses, hearing aids from home if patient uses these at baseline. 6. Avoid medications that may exacerbate delirium (especially narcotics, benzodiazepines, barbiturates, ambien, lunesta, and medications with excessive anticholinergic properties). Staffed with Dr William Sanches.
[2019-04-04] MEDS ORDERED: ROSUVASTATIN 10 MG PO SCH (22:00)
[2019-04-04] MEDS: ACETAMINOPHEN 325 MG TAB PO PRN (22:17)
[2019-04-05] MEDS: SODIUM CHLORIDE 0.9% 1000 ML 1,000 ML IV SCH (06:12)
[2019-04-05] MEDS: INSULIN LISPRO 100 UNIT/ML SUB-Q SCH ×4 (07:30→21:40)
[2019-04-05 08:11] LABS: Free T4 (Free Thyroxine) 1.1 ng/dL (0.76-1.46)
[2019-04-05] MEDS: ACETAMINOPHEN 325 MG TAB PO PRN ×2 (09:47→21:59)
[2019-04-05] MEDS: CARVEDILOL 25 MG TAB PO SCH ×2 (09:47→21:39)
[2019-04-05] MEDS: ASPIRIN 81 MG TAB CHEW PO SCH (09:47)
[2019-04-05] MEDS: FAMOTIDINE 20 MG TAB PO SCH ×2 (09:47→21:43)
[2019-04-05] MEDS: ENOXAPARIN 40 MG/0.4 ML INJ SUB-Q SCH (09:48)
--- NOTE | 2019-04-05 15:13 | Progress Note ---
Assessment and Plan Assessment and plan: Acute metabolic encephalopathy vs acute psychosis - Mental health consulted - Patient was alert and oriented this morning - No suicidal ideation Hyperkalemia - Patient was given Kayexalate, resolved KELLY due to vasomotor nephropathy - Resolved DM2 with hyperglycemia - cont Sliding-scale insulin coverage, Lantus added - cont ADA diet, accucheck, adjust insulin as needed Hyperlipidemia - cont crestor Hypertension - amlodipine changed to coreg due to tachycardia, will monitor DVT prophylaxis -On Lovenox Disposition: patient is medically stable. d/c per psych History Interval history: Patient has no new complaints. Hospitalist Physical - Constitutional Vitals: Temp Pulse Resp BP Pulse Ox 98.6 F 84 19 148/82 99 04/04/19 20:52 04/05/19 12:00 04/05/19 10:00 04/05/19 09:47 04/05/19 10:00 General appearance: Present: no acute distress, well-nourished - EENT Eyes: Present: PERRL, EOM intact ENT: hearing intact, clear oral mucosa - Neck Neck: Present: supple - Respiratory Respiratory effort: normal Respiratory: bilateral: CTA - Cardiovascular Rhythm: other (tachycardia with regular rhythm) Heart Sounds: Present: S1 & S2 - Extremities Extremities: No edema - Abdominal General gastrointestinal: soft, non-tender, normal bowel sounds - Integumentary Integumentary: Present: warm, dry - Psychiatric Psychiatric: appropriate mood/affect - Neurologic Neurologic: CNII-XII intact Results - Labs CBC & Chem 7: 04/03/19 20:26 04/04/19 07:54 Labs: Laboratory Last Values WBC 8.1 K/mm3 (4.5-11.0) 04/03/19 20: RBC 4.43 M/mm3 (3.65-5.03) 04/03/19 20: Hgb 12.1 gm/dl (10.1-14.3) 04/03/19 20: Hct 37.0 % (30.3-42.9) 04/03/19 20:26 MCV 84 fl (79-97) 04/03/19 20:26 MCH 27 pg (28-32) L 04/03/19 20: MCHC 33 % (30-34) 04/03/19 20: RDW 14.5 % (13.2-15.2) 04/03/19 20:26 Plt Count 204 K/mm3 (140-440) 04/03/19 20:26 Lymph % (Auto) 35.8 % (13.4-35.0) H 04/03/19 20:26 [place] % (Auto) 8.2 % (0.0-7.3) H 04/03/19 20:26 Eos % (Auto) 1.6 % (0.0-4.3) 04/03/19 20: Baso % (Auto) 0.5 % (0.0-1.8) 04/03/19 20: Lymph # 2.9 K/mm3 (1.2-5.4) 04/03/19 20: [place] # 0.7 K/mm3 (0.0-0.8) 04/03/19 20: Eos # 0.1 K/mm3 (0.0-0.4) 04/03/19 20: Baso # 0.0 K/mm3 (0.0-0.1) 04/03/19 20:26 Seg Neutrophils % 53.9 % (40.0-70.0) 04/03/19 20: Seg Neutrophils # 4.4 K/mm3 (1.8-7.7) 04/03/19 20:26 Sodium 141 mmol/L (137-145) 04/04/19 07:54 Potassium 4.1 mmol/L (3.6-5.0) D 04/04/19 07:54 Chloride 104.1 mmol/L (98-107) 04/04/19 07:54 Carbon Dioxide 23 mmol/L (22-30) 04/04/19 07:54 Anion Gap 18 mmol/L 04/04/19 07:54 BUN 19 mg/dL (7-17) H 04/04/19 07:54 Creatinine 1.1 mg/dL (0.7-1.2) 04/04/19 07:54 Estimated GFR > 60 ml/min 04/04/19 07:54 BUN/Creatinine Ratio 17 % 04/04/19 07:54 Glucose 162 mg/dL (65-100) H 04/04/19 07:54 POC Glucose 207 (70-105) H 04/05/19 11:59 Hemoglobin A1c 7.8 % (4-6) H 04/04/19 07:54 Calcium 9.6 mg/dL (8.4-10.2) 04/04/19 07:54 Total Bilirubin 0.40 mg/dL (0.1-1.2) 04/03/19 20:26 Direct Bilirubin < 0.2 mg/dL (0-0.2) 04/03/19 20:26 Indirect Bilirubin 0.2 mg/dL 04/03/19 20:26 AST 43 units/L (5-40) H 04/03/19 20:26 ALT 25 units/L (7-56) 04/03/19 20:26 Alkaline Phosphatase 54 units/L (35-129) 04/03/19 20:26 Ammonia 56.0 umol/L (25-60) 04/03/19 20:26 Troponin T < 0.010 ng/mL (0.00-0.029) 04/03/19 20:26 Total Protein 8.0 g/dL (6.3-8.2) 04/03/19 20:26 Albumin 4.0 g/dL (3.9-5) 04/03/19 20:26 Albumin/Globulin Ratio 1.0 % 04/03/19 20: TSH 0.026 mlU/mL (0.270-4.200) L 04/03/19 20:26 Free T4 1.10 ng/dL (0.76-1.46) 04/05/19 06:44 Urine Color Yellow (Yellow) 04/03/19 Unknown Urine Turbidity Clear (Clear) 04/03/19 Unknown Urine pH 5.0 (5.0-7.0) 04/03/19 Unknown Ur Specific [place] 1.011 (1.003-1.030) 04/03/19 Unknown Urine Protein <15 mg/dl mg/dL (Negative) 04/03/19 Unknown Urine Glucose (UA) Neg mg/dL (Negative) 04/03/19 Unknown Urine Ketones Neg mg/dL (Negative) 04/03/19 Unknown Urine Blood Neg (Negative) 04/03/19 Unknown Urine Nitrite Neg (Negative) 04/03/19 Unknown Urine Bilirubin Mod (Negative) 04/03/19 Unknown Urine Ictotest Positive (Negative) 04/03/19 Unknown Urine Urobilinogen 4.0 mg/dL (<2.0) 04/03/19 Unknown Ur Leukocyte Esterase Neg (Negative) 04/03/19 Unknown Urine WBC (Auto) 1.0 /HPF (0.0-6.0) 04/03/19 Unknown Urine RBC (Auto) < 1.0 /HPF (0.0-6.0) 04/03/19 Unknown U Epithel Cells (Auto) 1.0 /HPF (0-13.0) 04/03/19 Unknown Urine Mucus Few /HPF 04/03/19 Unknown Salicylates < 0.3 mg/dL (2.8-20.0) L 04/03/19 20:26 Urine Opiates Screen Presumptive negative 04/03/19 Unknown Urine Methadone Screen Presumptive negative 04/03/19 Unknown Acetaminophen < 5.0 ug/mL (10.0-30.0) L 04/03/19 20:26 Ur Barbiturates Screen Presumptive negative 04/03/19 Unknown Ur Phencyclidine Scrn Presumptive negative 04/03/19 Unknown Ur Amphetamines Screen Presumptive negative 04/03/19 Unknown U Benzodiazepines Scrn Presumptive negative 04/03/19 Unknown Urine Cocaine Screen Presumptive negative 04/03/19 Unknown U Marijuana (THC) Screen Presumptive negative 04/03/19 Unknown Drugs of Abuse Note Disclamer 04/03/19 Unknown Plasma/Serum Alcohol < 0.01 % (0-0.07) 04/03/19 20:26 Active Medications - Current Medications Current Medications: Generic Name Dose Route Start Last Admin Trade Name Freq PRN Reason Stop Dose Admin Acetaminophen 650 mg 04/03/19 23:01 04/05/19 09:47 Tylenol PO 650 mg Q4H PRN Administration Pain MILD(1-3)/Fever >100.5/WILKINSON Aspirin 81 mg 04/04/19 10:00 04/05/19 09:47 Baby Aspirin PO 81 mg QDAY ANDREW Administration Atorvastatin Calcium 20 mg 04/04/19 22:00 04/04/19 22:18 Lipitor PO 20 mg QHS ANDREW Administration Carvedilol 25 mg 04/05/19 10:00 04/05/19 09:47 Coreg PO 25 mg BID ANDREW Administration Dextrose 50 ml 04/04/19 01:50 D50w (25gm) Syringe IV Q30MIN PRN Hypoglycemia Enoxaparin Sodium 40 mg 04/04/19 10:00 04/05/19 09:48 Enoxaparin SUB-Q 40 mg QDAY@1000 ANDREW Administration Famotidine 20 mg 04/04/19 10:00 04/05/19 09:47 Pepcid PO 20 mg BID ANDREW Administration Insulin Glargine 10 units 04/05/19 22:00 Lantus SUB-Q QHS ANDREW Insulin Human Lispro 0 unit 04/04/19 07:30 04/05/19 11:30 Humalog SUB-Q 2 unit ACHS ANDREW Administration Protocol Ondansetron HCl 4 mg 04/03/19 23:01 04/04/19 09:27 Zofran IV 4 mg Q8H PRN Administration Nausea And Vomiting Sodium Chloride 10 ml 04/04/19 10:00 04/05/19 09:48 Sodium Chloride Flush Syringe 10 Ml IV 10 ml BID ANDREW Administration Sodium Chloride 10 ml 04/03/19 23:01 Sodium Chloride Flush Syringe 10 Ml IV PRN PRN LINE FLUSH Nutrition/Malnutrition Assess - Dietary Evaluation Nutrition/Malnutrition Findings: Nutrition Notes Start: 04/04/19 13:58 Freq: Status: Active Protocol: Document 04/04/19 13:58 SHERYL (Rec: 04/04/19 14:07 SHERYL [id number]) Nutrition Notes Need for Assessment generated from: MST Initial or Follow up Assessment Current Diagnosis Diabetes,Hypertension, Hyperlipidemia Other Pertinent Diagnosis AMS, h/o substance abuse Current Diet Cardiac/consistent CHO Labs/Tests BUN: 19 Pertinent Medications Reviewed Height 5 ft 4 in Weight 81.4 kg [place] Body Weight (kg) 54.54 BMI 30.8 Intake Prior to Admission Good Weight change and time frame Pt denied recent wt loss Weight Status Obese Subjective/Other Information Pt screend for MST. Pt with AMS at time of visit. Pt changed subject frequently during conversation with RD. Pt denied recent wt loss, N/V/ C/D, and decreased appetite. Per pt, she has a dieitian see sees through her PCP in [place]. Per pt she ate less than 50% of bfast tray, stating she does not like the food. Burn Absent Trauma Absent Minimum of two criteria No physical signs of malnutrition #1 Nutrition Diagnosis Inadequate oral intake Etiology Not liking hospital food As Evidenced by Signs and Symptoms Pt report of eating less than 50% of breakfast tray Is patient on ventilator? No Is Patient Ambulatory and/or Out of Bed Yes REE-([facility]-ambulatory/OOB) [ 9313.700 NUTR.MSJOOB] Calculation Used for Recommendations [facility] Additional Notes Pro needs: 81-98g/day (1-1.2 g /kg BW) Fluid needs: 1ml/kcal Nutrition Intervention Change Diet Order: Continue cardiac/consistent CHO diet Add Supplement/Snack (indicate name/kcal Glucerna daily /protein ) Provides kCal: 220 Provides Protein (gm) 10 Goal #1 Pt to consume at least 80% of energy and protein needs via PO and ONS intakes Anticipated Discharge Needs: cardiac/consistent CHO diet with ONS PRN Follow-Up By: 04/07/19 Additional Comments F/u for PO and ONS intakes
--- NOTE | 2019-04-05 18:29 | Progress Note ---
Subjective - Reason for Consult Consult date: 04/05/19 Reason for consult: follow up - Chief Complaint Chief complaint: "Cowboys and INdians." She is confused and agitated. She was observed making and remaking her bed. She followed [facility]SPORTATION WORKER out in the [place] and expressed she did not like people leaving. Review of medical progress notes reveals she is medically cleared. Mental Status Exam - Vital signs Last Vital Signs Temp 98.9 F 04/05/19 16:18 Pulse 84 04/05/19 16:18 Resp 18 04/05/19 16:18 BP 139/116 04/05/19 16:18 Pulse Ox 97 04/05/19 16:18 Assessment and Plan Impression. She is confused and agitated. She has been medically cleared. She had multiple inpatient psychiatric admissions for episodes of running naked and aggressive behavior. Likely there is underlying mental illness or consider dementia with behavioral disturbance Recent presentation could also have been delirium superimposed on one of the above disorders. Confusion and agitation persist. DDx: bipolar, schizophrenia, MDD with psychosis Recommendation/Plan: 1013 for psychosis. dispo: transfer to inpatient psychiatric facility/[facility] unit capabilities Staffed with Dr William Sanches.
[2019-04-05] MEDS ORDERED: INSULIN GLARGINE 100 UNITS/ML SUB-Q SCH (22:00)
[2019-04-06] MEDS: INSULIN LISPRO 100 UNIT/ML SUB-Q SCH ×2 (08:00→11:30)
[2019-04-06] MEDS: CARVEDILOL 25 MG TAB PO SCH (09:59)
[2019-04-06] MEDS: ENOXAPARIN 40 MG/0.4 ML INJ SUB-Q SCH (09:59)
[2019-04-06] MEDS: ASPIRIN 81 MG TAB CHEW PO SCH (09:59)
[2019-04-06] MEDS: FAMOTIDINE 20 MG TAB PO SCH (09:59)
[2019-04-06] MEDS: ACETAMINOPHEN 325 MG TAB PO PRN (11:08)
--- NOTE | 2019-04-06 12:07 | Progress Note ---
Subjective - Reason for Consult Consult date: 04/06/19 Reason for consult: Psychiatry Follow-up - Chief Complaint Chief complaint: "I thought my aunt was " 68 y.o. AA female who presented to the ER for AMS and possibly psychosis. Today the patient was tangent during the assessment. He is adamant about a family possibly dying and that's one of reason for being the hospital. She could not elaborate more about her hospital admission when asked questions. She became somewhat irritable when asked about her mental health hx. She needed constant redirection to keep her on topic. She did state that she took medication for a mental health dx. She denies SI/HI's and AVH's. Mental Status Exam - Vital signs Last Vital Signs Temp 98.7 F 04/06/19 09:29 Pulse 73 04/06/19 10:00 Resp 18 04/06/19 10:00 BP 128/82 04/06/19 09:59 Pulse Ox 99 04/06/19 10:00 - Exam Narrative exam: MSE: Appearance: in hospital attire Behavior: regular eye contact Speech: regular rate and tone Mood: somewhat irritable Affect: congruent to mood Thought Process: tangent Thought Content: denies SI/HI's and AVH's, delusional Motor Activity: sitting up in bed Cognition: A/O x3 Insight: poor Judgment: poor Assessment and Plan Impression: Unspecified Psychosis. Today the patient was tangent during the assessment. DDx: Bipolar DO with psychosis, Schizophrenia, R/O Neuro Cog DO Recommendation/Plan: Continue 1013 and start Zyprexa 2.5 mg PO HS for psychosis. Attempted to discuss possible metabolic side effects from Zyprexa with the patient. Dispo: The patient was referred to inpatient psy services. Staffed with Dr. William Sanches.
--- NOTE | 2019-04-06 14:05 | Progress Note ---
Assessment and Plan Assessment and plan: Acute Psychosis. -DDx: Bipolar DO with psychosis, Schizophrenia, R/O Neuro Cog DO -mental health team recommendation/Plan: Continue 1013 and start Zyprexa 2.5 mg PO HS for psychosis. -patient was been referred to inpatient psych services. Hyperkalemia - s/p Kayexalate, resolved KELLY due to vasomotor nephropathy - Resolved DM2, now with hypoglycemia - cont Sliding-scale insulin coverage, Lantus d/norma - cont ADA diet and accucheck Hyperlipidemia - cont crestor Hypertension - controlled on coreg DVT prophylaxis -On Lovenox Disposition: patient is medically stable. d/c per mental health team History Interval history: Patient has no new complaints. She was placed on 1013 yesterday by the psych team Hospitalist Physical - Constitutional Vitals: Temp Pulse Resp BP Pulse Ox 98.7 F 73 18 128/82 99 04/06/19 09:29 04/06/19 10:00 04/06/19 10:00 04/06/19 09:59 04/06/19 10:00 General appearance: Present: no acute distress, well-nourished - EENT Eyes: Present: PERRL, EOM intact ENT: hearing intact, clear oral mucosa - Neck Neck: Present: supple - Respiratory Respiratory effort: normal Respiratory: bilateral: CTA - Cardiovascular Rhythm: regular Heart Sounds: Present: S1 & S2 - Extremities Extremities: No edema - Abdominal General gastrointestinal: soft, non-tender, normal bowel sounds - Integumentary Integumentary: Present: warm, dry - Neurologic Neurologic: CNII-XII intact Results - Labs CBC & Chem 7: 04/03/19 20:26 04/04/19 07:54 Labs: Laboratory Last Values WBC 8.1 K/mm3 (4.5-11.0) 04/03/19 20: RBC 4.43 M/mm3 (3.65-5.03) 04/03/19 20: Hgb 12.1 gm/dl (10.1-14.3) 04/03/19 20:26 Hct 37.0 % (30.3-42.9) 04/03/19 20: MCV 84 fl (79-97) 04/03/19 20: MCH 27 pg (28-32) L 04/03/19 20: MCHC 33 % (30-34) 04/03/19 20: RDW 14.5 % (13.2-15.2) 04/03/19 20: Plt Count 204 K/mm3 (140-440) 04/03/19 20:26 Lymph % (Auto) 35.8 % (13.4-35.0) H 04/03/19 20: [place] % (Auto) 8.2 % (0.0-7.3) H 04/03/19 20:26 Eos % (Auto) 1.6 % (0.0-4.3) 04/03/19 20: Baso % (Auto) 0.5 % (0.0-1.8) 04/03/19 20: Lymph # 2.9 K/mm3 (1.2-5.4) 04/03/19 20: [place] # 0.7 K/mm3 (0.0-0.8) 04/03/19 20: Eos # 0.1 K/mm3 (0.0-0.4) 04/03/19 20: Baso # 0.0 K/mm3 (0.0-0.1) 04/03/19 20: Seg Neutrophils % 53.9 % (40.0-70.0) 04/03/19 20: Seg Neutrophils # 4.4 K/mm3 (1.8-7.7) 04/03/19 20:26 Sodium 141 mmol/L (137-145) 04/04/19 07:54 Potassium 4.1 mmol/L (3.6-5.0) D 04/04/19 07:54 Chloride 104.1 mmol/L (98-107) 04/04/19 07:54 Carbon Dioxide 23 mmol/L (22-30) 04/04/19 07:54 Anion Gap 18 mmol/L 04/04/19 07:54 BUN 19 mg/dL (7-17) H 04/04/19 07:54 Creatinine 1.1 mg/dL (0.7-1.2) 04/04/19 07:54 Estimated GFR > 60 ml/min 04/04/19 07:54 BUN/Creatinine Ratio 17 % 04/04/19 07:54 Glucose 162 mg/dL (65-100) H 04/04/19 07:54 POC Glucose 68 (70-105) L 04/06/19 12:22 Hemoglobin A1c 7.8 % (4-6) H 04/04/19 07:54 Calcium 9.6 mg/dL (8.4-10.2) 04/04/19 07:54 Total Bilirubin 0.40 mg/dL (0.1-1.2) 04/03/19 20:26 Direct Bilirubin < 0.2 mg/dL (0-0.2) 04/03/19 20:26 Indirect Bilirubin 0.2 mg/dL 04/03/19 20:26 AST 43 units/L (5-40) H 04/03/19 20:26 ALT 25 units/L (7-56) 04/03/19 20:26 Alkaline Phosphatase 54 units/L (35-129) 04/03/19 20:26 Ammonia 56.0 umol/L (25-60) 04/03/19 20:26 Troponin T < 0.010 ng/mL (0.00-0.029) 04/03/19 20:26 Total Protein 8.0 g/dL (6.3-8.2) 04/03/19 20:26 Albumin 4.0 g/dL (3.9-5) 04/03/19 20:26 Albumin/Globulin Ratio 1.0 % 04/03/19 20:26 TSH 0.026 mlU/mL (0.270-4.200) L 04/03/19 20:26 Free T4 1.10 ng/dL (0.76-1.46) 04/05/19 06:44 Urine Color Yellow (Yellow) 04/03/19 Unknown Urine Turbidity Clear (Clear) 04/03/19 Unknown Urine pH 5.0 (5.0-7.0) 04/03/19 Unknown Ur Specific [place] 1.011 (1.003-1.030) 04/03/19 Unknown Urine Protein <15 mg/dl mg/dL (Negative) 04/03/19 Unknown Urine Glucose (UA) Neg mg/dL (Negative) 04/03/19 Unknown Urine Ketones Neg mg/dL (Negative) 04/03/19 Unknown Urine Blood Neg (Negative) 04/03/19 Unknown Urine Nitrite Neg (Negative) 04/03/19 Unknown Urine Bilirubin Mod (Negative) 04/03/19 Unknown Urine Ictotest Positive (Negative) 04/03/19 Unknown Urine Urobilinogen 4.0 mg/dL (<2.0) 04/03/19 Unknown Ur Leukocyte Esterase Neg (Negative) 04/03/19 Unknown Urine WBC (Auto) 1.0 /HPF (0.0-6.0) 04/03/19 Unknown Urine RBC (Auto) < 1.0 /HPF (0.0-6.0) 04/03/19 Unknown U Epithel Cells (Auto) 1.0 /HPF (0-13.0) 04/03/19 Unknown Urine Mucus Few /HPF 04/03/19 Unknown Salicylates < 0.3 mg/dL (2.8-20.0) L 04/03/19 20:26 Urine Opiates Screen Presumptive negative 04/03/19 Unknown Urine Methadone Screen Presumptive negative 04/03/19 Unknown Acetaminophen < 5.0 ug/mL (10.0-30.0) L 04/03/19 20:26 Ur Barbiturates Screen Presumptive negative 04/03/19 Unknown Ur Phencyclidine Scrn Presumptive negative 04/03/19 Unknown Ur Amphetamines Screen Presumptive negative 04/03/19 Unknown U Benzodiazepines Scrn Presumptive negative 04/03/19 Unknown Urine Cocaine Screen Presumptive negative 04/03/19 Unknown U Marijuana (THC) Screen Presumptive negative 04/03/19 Unknown Drugs of Abuse Note Disclamer 04/03/19 Unknown Plasma/Serum Alcohol < 0.01 % (0-0.07) 04/03/19 20:26 Active Medications - Current Medications Current Medications: Generic Name Dose Route Start Last Admin Trade Name Freq PRN Reason Stop Dose Admin Acetaminophen 650 mg 04/03/19 23:01 04/06/19 11:08 Tylenol PO 650 mg Q4H PRN Administration Pain MILD(1-3)/Fever >100.5/[place]KINSON Aspirin 81 mg 04/04/19 10:00 04/06/19 09:59 Baby Aspirin PO 81 mg QDAY ANDREW Administration Atorvastatin Calcium 20 mg 04/04/19 22:00 04/05/19 21:39 Lipitor PO 20 mg QHS ANDREW Administration Carvedilol 25 mg 04/05/19 10:00 04/06/19 09:59 Coreg PO 25 mg BID ANDREW Administration Dextrose 50 ml 04/04/19 01:50 D50w (25gm) Syringe IV Q30MIN PRN Hypoglycemia Enoxaparin Sodium 40 mg 04/04/19 10:00 04/06/19 09:59 Enoxaparin SUB-Q 40 mg QDAY@1000 ANDREW Administration Famotidine 20 mg 04/04/19 10:00 04/06/19 09:59 Pepcid PO 20 mg BID ANDREW Administration Insulin Glargine 10 units 04/05/19 22:00 04/05/19 21:39 Lantus SUB-Q 10 units QHS ANDREW Administration Insulin Human Lispro 0 unit 04/04/19 07:30 04/06/19 08:00 Humalog SUB-Q 2 unit ACHS ANDREW Administration Protocol Ondansetron HCl 4 mg 04/03/19 23:01 04/04/19 09:27 Zofran IV 4 mg Q8H PRN Administration Nausea And Vomiting Sodium Chloride 10 ml 04/04/19 10:00 04/06/19 10:00 Sodium Chloride Flush Syringe 10 Ml IV 10 ml BID ANDREW Administration Sodium Chloride 10 ml 04/03/19 23:01 Sodium Chloride Flush Syringe 10 Ml IV PRN PRN LINE FLUSH Nutrition/Malnutrition Assess - Dietary Evaluation Nutrition/Malnutrition Findings: Nutrition Notes Start: 04/04/19 13:58 Freq: Status: Active Protocol: Document 04/04/19 13:58 SHERYL (Rec: 04/04/19 14:07 SHERYL [id number]) Nutrition Notes Need for Assessment generated from: MST Initial or Follow up Assessment Current Diagnosis Diabetes,Hypertension, Hyperlipidemia Other Pertinent Diagnosis AMS, h/o substance abuse Current Diet Cardiac/consistent CHO Labs/Tests BUN: 19 Pertinent Medications Reviewed Height 5 ft 4 in Weight 81.4 kg [place] Body Weight (kg) 54.54 BMI 30.8 Intake Prior to Admission Good Weight change and time frame Pt denied recent wt loss Weight Status Obese Subjective/Other Information Pt screend for MST. Pt with AMS at time of visit. Pt changed subject frequently during conversation with RD. Pt denied recent wt loss, N/V/ C/D, and decreased appetite. Per pt, she has a dieitian see sees through her PCP in [place]. Per pt she ate less than 50% of bfast tray, stating she does not like the food. Burn Absent Trauma Absent Minimum of two criteria No physical signs of malnutrition #1 Nutrition Diagnosis Inadequate oral intake Etiology Not liking hospital food As Evidenced by Signs and Symptoms Pt report of eating less than 50% of breakfast tray Is patient on ventilator? No Is Patient Ambulatory and/or Out of Bed Yes REE-([facility]-ambulatory/OOB) [ 8743.764 NUTR.MSJOOB] Calculation Used for Recommendations [facility] Additional Notes Pro needs: 81-98g/day (1-1.2 g /kg BW) Fluid needs: 1ml/kcal Nutrition Intervention Change Diet Order: Continue cardiac/consistent CHO diet Add Supplement/Snack (indicate name/kcal Glucerna daily /protein ) Provides kCal: 220 Provides Protein (gm) 10 Goal #1 Pt to consume at least 80% of energy and protein needs via PO and ONS intakes Anticipated Discharge Needs: cardiac/consistent CHO diet with ONS PRN Follow-Up By: 04/07/19 Additional Comments F/u for PO and ONS intakes
[2019-04-06 14:12] VITALS: BP 142/71
--- NOTE | 2019-04-06 15:18 | Discharge Summary ---
Providers - Providers Date of Admission: 04/03/19 23:01 Date of discharge: 04/06/19 Attending physician: MILLY MILIAN 04/04/19 04:55 psychiatry consult [Consult to Mental Health] [CONS] Routine Reason For Exam: ams Place consult to:: psych Notified:: yes Phone number called:: [phone] Was contact made?: Yes If yes, spoke with:: Tanisha Time called:: 08:48 Primary care physician: LEI AARON MD Hospitalization Condition: Fair Hospital course: Final discharge diagnosis: Acute Psychosis. -DDx: Bipolar DO with psychosis, Schizophrenia, R/O Neuro Cog DO -mental health team recommendation/Plan: Continue 1013 and start Zyprexa 2.5 mg PO HS for psychosis. -patient was been referred to inpatient psych services. Hyperkalemia - s/p Kayexalate, resolved KELLY due to vasomotor nephropathy - Resolved DM2, now with hypoglycemia - cont Sliding-scale insulin coverage, Lantus d/norma - cont ADA diet and accucheck Hyperlipidemia - cont crestor Hypertension - controlled on coreg Disposition: DC-30 STILL A PATIENT Exam - Constitutional Vitals: Temp Pulse Resp BP Pulse Ox 98 F 78 19 142/71 99 04/06/19 11:30 04/06/19 11:30 04/06/19 11:30 04/06/19 11:30 04/06/19 10:00 Plan Follow up with: PRIMARY MD AGNIESZKA [Primary Care Provider] - 7 Days Forms: AMA Form
== END 2019-04-06 16:23 | DRG 683 ==
LOC: ED 19:25 → 4A 23:01
PROVIDERS: ADMIT Internal Medicine; ATTEND Internal Medicine
DX: N17.0 Acute kidney failure with tubular necrosis (principal); G93.40 Encephalopathy, unspecified; F23 Brief psychotic disorder; E87.5 Hyperkalemia; I10 Essential (primary) hypertension; E78.5 Hyperlipidemia, unspecified; F32.9 Major depressive disorder, single episode, unspecified; G89.29 Other chronic pain; E11.65 Type 2 diabetes mellitus with hyperglycemia; Z88.5 Allergy status to narcotic agent; Z79.899 Other long term (current) drug therapy; Z79.82 Long term (current) use of aspirin; Z90.710 Acquired absence of both cervix and uterus
CPT/HCPCS: 36415; 70450; 80048; 80076; 80307; 80320; 81001; 82140; 82962; 83036; 84439; 84443; 84484; 85025; 90686; 93005; 93010; G0378; A9270-GY; G0480; J1650; J1815; J2405; J7030

== ENCOUNTER 2021-03-25 13:54 | Inpatient (IN) | payer MEDICARE ==
--- NOTE | 2021-03-25 13:59 | Emergency Department Report ---
ED Altered Mental Status HPI - General Stated Complaint: UNRESPONSIVE Time Seen by Provider: 03/25/21 13:59 - History of Present Illness Initial Comments: Patient was brought in by ambulance secondary to altered mental status. According to EMS, the patient was altered. Family found her face down on the ground. We do not know last known normal. We are aware that she was apparently discharged from another facility yesterday due to hyperglycemia. According to EMS, the family had taken her home. They had stated that she just was not acting right for the last several days prior to going to a different hospital. Regardless, today she was unresponsive. EMS was called. They transported the patient here. Patient cannot provide any history. She is somewhat altered and confused. EMS reported no history of trauma and no visible sign of trauma. - Related Data Home Medications Medication Instructions Recorded Confirmed Last Taken Rosuvastatin (Nf) [Crestor] 10 mg PO QHS 04/02/13 03/25/21 Unknown Amitriptyline HCl 150 mg PO HS 09/09/19 03/25/21 Unknown Insulin Aspart Prot/Aspart(Nf) 20 units IM TID 09/10/19 03/25/21 09/09/19 [NovoLOG Mix 70/30 VIAL] Insulin Lispro 10 units IM TID 09/10/19 03/25/21 09/09/19 Previous Rx's Medication Instructions Recorded Last Taken Type diazePAM TAB [Valium] 5 mg PO TID PRN #15 tablet 04/02/13 Unknown Rx OLANzapine [ZyPREXA] 2.5 mg PO QHS tablet 04/06/19 Unknown Rx carvediloL [Coreg] 25 mg PO BID #60 tablet 09/11/19 Unknown Rx cephALEXin [Keflex] 500 mg PO Q12HR #6 cap 09/11/19 Unknown Rx Allergies Allergy/AdvReac Type Severity Reaction Status Date / Time codeine Allergy Rash Verified 04/02/13 11:07 ED Review of Systems ROS: Stated complaint: UNRESPONSIVE Other details as noted in HPI Comment: Unobtainable due to pts medical conditions (Altered mental status) ED Past Medical Hx - Past Medical History Hx Hypertension: Yes Hx Diabetes: Yes Hx Psychiatric Treatment: Yes (schizophrenia) Additional medical history: chronic pain. Cannot be obtained for the patient secondary to altered mental status - Surgical History Additional Surgical History: hysterectomy - Family History Family history: other (Cannot be obtained for the patient secondary to altered mental status) - Social History Smoking Status: Never Smoker - Medications Home Medications: Home Medications Medication Instructions Recorded Confirmed Last Taken Type Rosuvastatin (Nf) [Crestor] 10 mg PO QHS 04/02/13 03/25/21 Unknown History diazePAM TAB [Valium] 5 mg PO TID PRN #15 tablet 04/02/13 03/25/21 Unknown Rx OLANzapine [ZyPREXA] 2.5 mg PO QHS tablet 04/06/19 03/25/21 Unknown Rx Amitriptyline HCl 150 mg PO HS 09/09/19 03/25/21 Unknown History Insulin Aspart Prot/Aspart(Nf) 20 units IM TID 09/10/19 03/25/21 09/09/19 History [NovoLOG Mix 70/30 VIAL] Insulin Lispro 10 units IM TID 09/10/19 03/25/21 09/09/19 History carvediloL [Coreg] 25 mg PO BID #60 tablet 09/11/19 03/25/21 Unknown Rx cephALEXin [Keflex] 500 mg PO Q12HR #6 cap 09/11/19 03/25/21 Unknown Rx ED Physical Exam - General Limitations: Altered Mental Status, Other (Pulse ox is noted and normal) General appearance: obtunded (But arouses with painful stimuli) - Head Head exam: Present: atraumatic, normocephalic, normal inspection - Eye Eye exam: Present: normal appearance, PERRL. Absent: scleral icterus - ENT ENT exam: Present: mucous membranes dry, normal external ear exam - Neck Neck exam: Present: normal inspection. Absent: meningismus - Respiratory Respiratory exam: Present: normal lung sounds bilaterally. Absent: respiratory distress - Cardiovascular Cardiovascular Exam: Present: regular rate, normal rhythm - GI/Abdominal GI/Abdominal exam: Present: soft. Absent: distended, tenderness - Extremities Exam Extremities exam: Present: normal capillary refill - Back Exam Back exam: Absent: CVA tenderness (R), CVA tenderness (L) - Neurological Exam Neurological exam: Present: oriented X3 - Psychiatric Psychiatric exam: Present: normal affect, normal mood - Skin Skin exam: Present: warm, dry ED Course Vital Signs 03/25/21 14:10 O2 Sat by Pulse 97 Oximetry - Reevaluation(s) Reevaluation #1: 03/25/21 13:[address] was ordered. Glucose was noted. Reevaluation #2: 03/25/21 15:24 Labs of been noted[address] CT has been noted. Narcan was ordered as a trial. Reevaluation #3: 03/25/21 15:53 Etiology for the patient's altered mental status and encephalopathy is not known. There is no obvious metabolic derangement. She does not have any obvious infectious pathology. She has not responded to Narcan. This is not a glycemic episode. Patient does not have any evidence of tumor on CT. There is no bleed. We will proceed with observation and further management. - Lab Data Result diagrams: 03/25/21 14:12 03/25/21 14:12 Lab Results 03/25/21 03/25/21 03/25/21 Range/Units 13:58 14:12 14:12 WBC 6.6 (4.5-11.0) K/mm3 RBC 4.02 (3.65-5.03) M/mm3 Hgb 10.7 (10.1-14.3) gm/dl Hct 31.8 (30.3-42.9) % MCV 79 (79-97) fl MCH 27 L (28-32) pg MCHC 34 (30-34) % RDW 13.9 (13.2-15.2) % Plt Count 132 L (140-440) K/mm3 Sodium 138 (137-145) mmol/L Potassium 4.3 (3.6-5.0) mmol/L Chloride 108.9 H (98-107) mmol/L Carbon Dioxide 18 L (22-30) mmol/L Anion Gap 15 mmol/L BUN 11 (7-17) mg/dL Creatinine 0.7 (0.6-1.2) mg/dL Estimated GFR > 60 ml/min BUN/Creatinine Ratio 16 % Glucose 234 H (65-100) mg/dL POC Glucose 250 H (70-105) mg/dL Calcium 9.0 (8.4-10.2) mg/dL Troponin T < 0.010 (0.00-0.029) ng/mL Urine Opiates Screen Urine Methadone Screen Ur Barbiturates Screen Ur Phencyclidine Scrn Ur Amphetamines Screen U Benzodiazepines Scrn Urine Cocaine Screen U Marijuana (THC) Screen Drugs of Abuse Note 03/25/21 Range/Units Unknown WBC (4.5-11.0) K/mm3 RBC (3.65-5.03) M/mm3 Hgb (10.1-14.3) gm/dl Hct (30.3-42.9) % MCV (79-97) fl MCH (28-32) pg MCHC (30-34) % RDW (13.2-15.2) % Plt Count (140-440) K/mm3 Sodium (137-145) mmol/L Potassium (3.6-5.0) mmol/L Chloride (98-107) mmol/L Carbon Dioxide (22-30) mmol/L Anion Gap mmol/L BUN (7-17) mg/dL Creatinine (0.6-1.2) mg/dL Estimated GFR ml/min BUN/Creatinine Ratio % Glucose (65-100) mg/dL POC Glucose (70-105) mg/dL Calcium (8.4-10.2) mg/dL Troponin T (0.00-0.029) ng/mL Urine Opiates Screen Presumptive negative Urine Methadone Screen Presumptive negative Ur Barbiturates Screen Presumptive negative Ur Phencyclidine Scrn Presumptive negative Ur Amphetamines Screen Presumptive negative U Benzodiazepines Scrn Presumptive negative Urine Cocaine Screen Presumptive positive U Marijuana (THC) Screen Presumptive negative Drugs of Abuse Note Disclamer Critical Care Time: No Critical care attestation.: If time is entered above; I have spent that time in minutes in the direct care of this critically ill patient, excluding procedure time. ED Disposition Clinical Impression: Encephalopathy Disposition: 09 ADMITTED INPATIENT Is pt being admited?: Yes Condition: Stable Referrals: PRIMARY CARE, [Primary Care Provider] - 3-5 Days
[2021-03-25] MEDS ORDERED: SODIUM CHLORIDE 0.9% 1000 ML 1,000 ML ONE ×2 (14:00→14:01)
[2021-03-25] MEDS ORDERED: SODIUM CHLORIDE 0.9% 1000 ML 1,000 ML IV ONE ×3 (14:00→15:56)
[2021-03-25 14:36] LABS: Hematocrit 31.8 % (30.3-42.9); Hemoglobin 10.7 gm/dl (10.1-14.3); Mean Corpuscular HGB Conc 34 % (30-34); Mean Corpuscular Volume 79 fl (79-97); Platelet Count 132 K/mm3 (140-440); Red Blood Count 4.02 M/mm3 (3.65-5.03); Red Cell Distribution Width 13.9 % (13.2-15.2)
[2021-03-25 14:48] LABS: Cocaine Screen,Urine PRESUMPTIVE POSITIVE
[2021-03-25 14:53] LABS: Blood Urea Nitrogen 11 mg/dL (7-17); Hemolysis Index 25
[2021-03-25 14:57] LABS: BUN/Creatinine Ratio 16
--- NOTE | 2021-03-25 14:57 | Cat Scan Report ---
CT HEAD WITHOUT CONTRAST INDICATION : ams. TECHNIQUE: Axial, coronal and sagittal CT imaging was performed from the skull apex through the skul l base without contrast. All CT scans at this location are performed using CT dose reduction for ALA RA by means of automated exposure control. COMPARISON: CT head without contrast from 09/09/2019. FINDINGS: PARENCHYMA: No mass, midline shift, hemorrhage, extraaxial collection or acute territorial infarctio n. Mild chronic microangiopathy is again seen. VENTRICLES: Symmetric and normal in size. SOFT TISSUES: No significant abnormality of the included soft tissues/orbits. BONES: No acute osseous abnormality. SINUSES: No significant abnormality. ADDITIONAL FINDINGS: None. IMPRESSION: 1. No acute intracranial abnormality. Signer Name: Anderson Andrea MD Signed: 03/25/2021 2:53 PM Workstation Name: [id number]
[2021-03-25 15:11] LABS: Amphetamine Screen,Urine PRESUMPTIVE NEGATIVE; Benzodiazepines Screen,Urine PRESUMPTIVE NEGATIVE; Cannabinoid Screen,Urine PRESUMPTIVE NEGATIVE; Methadone Screen,Urine PRESUMPTIVE NEGATIVE; Opiate Screen,Urine PRESUMPTIVE NEGATIVE
[2021-03-25] MEDS ORDERED: ONDANSETRON 4 MG/2 ML INJ ONE (15:22)
[2021-03-25] MEDS ORDERED: NALOXONE 2 MG/2 ML INJ ONE (15:23)
[2021-03-25] MEDS ORDERED: ONDANSETRON 4 MG/2 ML INJ IM ONE (15:37)
[2021-03-25] MEDS ORDERED: NALOXONE 2 MG/2 ML INJ IV ONE (15:37)
[2021-03-25] MEDS ORDERED: SODIUM BICARB 8.4% 50 MEQ/50 ML SYRINGE IV ONE (15:57)
--- NOTE | 2021-03-25 15:58 | History and Physical Report ---
History of Present Illness Chief complaint: confused and combative History of present illness: 70 YO Female with HTN, HLD, DM, Cocaine Dependence, Vascular Dementia, Cerebral Atherosclerosis, Depression presents to ED for evaluation. Patient has diminished cognition and is unable to provide history. Patient history taken from EMS staff, ED staff, as well as the patient's daughter who was made available by telephone for interview. As per daughter the patient has "been on a crack binge" for the past 1 week and has experienced increased weakness, confusion, agitation, and aggressive behavior over the same timeframe. The patient was found unresponsive by the daughter today. EMS was subsequently notified and upon arrival the patient was found to be in distress and transported to [facility] for further care and evaluation of the aforementioned symptoms. The patient was seen and evaluated in the emergency department. All lab and imaging studies reviewed. The patient was found to be incoherent, combative, hyperactive, agitated, with tangential thinking, with garbled and nonsensical speech. The patient was found to have clinical symptoms consistent with cocaine induced delirium secondary to cocaine toxicity, metabolic encephalopathy. The patient was treated with supportive care and admitted to medical floor with remote telemetry monitoring. An attempt was made to avoid restraint placement, however; due to increased combativeness and high risk for self injury the patient was placed in medical restraints. No reports of fever, chills, chest pain, palpitation, productive cough, skin rash, recent ill contacts, or known exposure to COVID-19. Prior admission on 09/09/2019 reviewed. All medication listed at time of admission has been reconciled. Advanced care planning conducted in ED. Past History Past Medical History: diabetes, hypertension, hyperlipidemia Past Surgical History: No surgical history, Other (Reviewed) Social history: single, lives with family, other (Cocaine dependence). denies: smoking, alcohol abuse Family history: hypertension Medications and Allergies Allergies Allergy/AdvReac Type Severity Reaction Status Date / Time codeine Allergy Rash Verified 04/02/13 11:07 Home Medications Medication Instructions Recorded Confirmed Last Taken Type Rosuvastatin (Nf) [Crestor] 10 mg PO QHS 04/02/13 03/25/21 Unknown History diazePAM TAB [Valium] 5 mg PO TID PRN #15 tablet 04/02/13 03/25/21 Unknown Rx OLANzapine [ZyPREXA] 2.5 mg PO QHS tablet 04/06/19 03/25/21 Unknown Rx Amitriptyline HCl 150 mg PO HS 09/09/19 03/25/21 Unknown History Insulin Aspart Prot/Aspart(Nf) 20 units IM TID 09/10/19 03/25/21 09/09/19 History [NovoLOG Mix 70/30 VIAL] Insulin Lispro 10 units IM TID 09/10/19 03/25/21 09/09/19 History carvediloL [Coreg] 25 mg PO BID #60 tablet 09/11/19 03/25/21 Unknown Rx cephALEXin [Keflex] 500 mg PO Q12HR #6 cap 09/11/19 03/25/21 Unknown Rx Review of Systems ROS unobtainable: due to mental status Exam - Constitutional Vitals: Temp Pulse Resp BP Pulse Ox 97 03/25/21 14:10 General appearance: Present: mild distress - EENT Eyes: Present: mydriasis ENT: hearing decreased - Neck Neck: Present: supple, normal ROM - Respiratory Respiratory effort: normal Respiratory: bilateral: CTA - Cardiovascular Heart Sounds: Present: S1 & S2. Absent: rub, click - Extremities Extremities: pulses symmetrical, No edema Peripheral Pulses: within normal limits - Abdominal General gastrointestinal: Present: soft, non-tender, non-distended, normal bowel sounds Female genitourinary: Present: normal - Integumentary Integumentary: Present: clear, dry, clammy - Musculoskeletal Musculoskeletal: strength equal bilaterally - Psychiatric Psychiatric: no appropriate mood/affect, no intact judgment & insight, no memory intact, no cooperative, agitated - Neurologic Neurologic: CNII-XII intact, no focal deficits, moves all extremities, no gait normal HEART Score - HEART Score Troponin: Troponin T < 0.010 ng/mL (0.00-0.029) 03/25/21 14:12 Results - Labs CBC & Chem 7: 03/25/21 14:12 03/25/21 14:12 Labs: Abnormal lab results 03/25/21 03/25/21 03/25/21 Range/Units 13:58 14:12 14:12 MCH 27 L (28-32) pg Plt Count 132 L (140-440) K/mm3 Chloride 108.9 H (98-107) mmol/L Carbon Dioxide 18 L (22-30) mmol/L Glucose 234 H (65-100) mg/dL POC Glucose 250 H (70-105) mg/dL Assessment and Plan - Patient Problems (1) Cocaine delirium Current Visit: Yes Status: Acute Plan to address problem: IV fluid resuscitation therapy, soft wrist restraints due to failed trial without restraints, benzodiazepine therapy as clinically indicated, aspiration precautions, fall precautions, neurochecks, telemetry monitoring. (2) Metabolic encephalopathy Current Visit: Yes Status: Acute Plan to address problem: CT head, neuro check, seizure precaution of aspiration precautions, fall precautions. (3) Vascular dementia Current Visit: Yes Status: Acute Qualifiers: Dementia behavioral disturbance: with behavioral disturbance Qualified Code(s): F01.51 - Vascular dementia with behavioral disturbance Plan to address problem: Verbal prompting, verbal redirection, benzodiazepine therapy as clinically indicated (4) Cerebral atherosclerosis Current Visit: Yes Status: Acute Plan to address problem: Risk factor reduction therapy, antiplatelet therapy as clinically indicated (5) HTN (hypertension) Current Visit: Yes Status: Acute Qualifiers: Hypertension type: primary hypertension Qualified Code(s): I10 - Essential (primary) hypertension Plan to address problem: Monitor blood pressure every shift, continue medical management (6) HLD (hyperlipidemia) Current Visit: Yes Status: Acute Qualifiers: Hyperlipidemia type: mixed hyperlipidemia Qualified Code(s): E78.2 - Mixed hyperlipidemia Plan to address problem: Low-cholesterol diet, statin therapy as clinically indicated (7) Major depression Current Visit: Yes Status: Acute Plan to address problem: Mental health team consulted, for evaluation to [facility] when medically optimized. (8) DVT prophylaxis Current Visit: Yes Status: Acute Plan to address problem: SCD to bilateral lower extremities while in bed (9) Advance care planning Current Visit: Yes Status: Acute Plan to address problem: Disease education conducted, care plan discussed, diagnoses discussed, prognosis discussed, patient is full code, patient daughter, Cierra Diaz acknowledges understanding and agreement with care plan. +30 minutes.
[2021-03-25] MEDS ORDERED: ACETAMINOPHEN 325 MG TAB PO PRN (16:21)
[2021-03-25] MEDS ORDERED: HYDROmorphone 1 MG/1 ML INJ IV PRN (16:21)
[2021-03-25] MEDS ORDERED: ALBUTEROL 2.5 MG/3 ML NEBU IH PRN (16:21)
[2021-03-25] MEDS ORDERED: oxyCODONE /ACETAMINOPHEN 5-325MG TAB PO PRN (16:21)
[2021-03-25] MEDS ORDERED: ONDANSETRON 4 MG/2 ML INJ IV PRN (16:21)
--- NOTE | 2021-03-25 16:26 | XRay Report ---
CHEST 1 VIEW 03/25/2021 3:50 PM INDICATION / CLINICAL INFORMATION: ams. COMPARISON: 09/09/2019 FINDINGS: SUPPORT DEVICES: None. HEART / MEDIASTINUM: No significant abnormality. LUNGS / PLEURA: No significant pulmonary or pleural abnormality. No pneumothorax. ADDITIONAL FINDINGS: No significant additional findings. IMPRESSION: 1. No acute findings. Signer Name: Bart Yang MD Signed: 03/25/2021 4:22 PM Workstation Name: [id number]
[2021-03-25] MEDS ORDERED: SODIUM CHLORIDE 0.9% 1000 ML 1,000 ML IV SCH (16:30)
[2021-03-25] MEDS ORDERED: NON-FORMULARY EACH (Rosuvastatin (Nf) 10 MG Tablet) PO SCH (22:00)
[2021-03-25] MEDS: carvediloL 25 MG TAB PO SCH (23:03)
[2021-03-25] MEDS ORDERED: hydrALAZINE 20 MG/1 ML INJ IV ONE (23:40)
[2021-03-26 08:12] LABS: Alanine Aminotransferase 36 units/L (7-56); Albumin 3.7 g/dL (3.9-5); BUN/Creatinine Ratio 14; Blood Urea Nitrogen 10 mg/dL (7-17); Calcium 9.3 mg/dL (8.4-10.2); Hemolysis Index 11
[2021-03-26] MEDS: carvediloL 25 MG TAB PO SCH ×2 (10:00→23:01)
--- NOTE | 2021-03-26 11:15 | Progress Note ---
Assessment and Plan (1) Cocaine delirium Current Visit: Yes Status: Acute Plan to address problem: IV fluid resuscitation therapy, soft wrist restraints due to failed trial without restraints, benzodiazepine therapy as clinically indicated, aspiration precautions, fall precautions, neurochecks, telemetry monitoring. (2) Metabolic encephalopathy Current Visit: Yes Status: Acute Plan to address problem: CT head, neuro check, seizure precaution of aspiration precautions, fall precautions. (3) Vascular dementia Current Visit: Yes Status: Acute Qualifiers: Dementia behavioral disturbance: with behavioral disturbance Qualified Code(s): F01.51 - Vascular dementia with behavioral disturbance Plan to address problem: Verbal prompting, verbal redirection, benzodiazepine therapy as clinically indicated (4) Cerebral atherosclerosis Current Visit: Yes Status: Acute Plan to address problem: Risk factor reduction therapy, antiplatelet therapy as clinically indicated (5) HTN (hypertension) Current Visit: Yes Status: Acute Qualifiers: Hypertension type: primary hypertension Qualified Code(s): I10 - Essential (primary) hypertension Plan to address problem: Monitor blood pressure every shift, continue medical management (6) HLD (hyperlipidemia) Current Visit: Yes Status: Acute Qualifiers: Hyperlipidemia type: mixed hyperlipidemia Qualified Code(s): E78.2 - Mixed hyperlipidemia Plan to address problem: Low-cholesterol diet, statin therapy as clinically indicated (7) Major depression Current Visit: Yes Status: Acute Plan to address problem: Mental health team consulted, for evaluation to [facility] when medically optimized. (8) DVT prophylaxis Current Visit: Yes Status: Acute Plan to address problem: SCD to bilateral lower extremities while in bed (9) Advance care planning Current Visit: Yes Status: Acute Plan to address problem: Disease education conducted, care plan discussed, diagnoses discussed, prognosis discussed, patient is full code, patient daughter, Cierra Diaz acknowledges understanding and agreement with care plan. +30 minutes. --03/26/21; continue 1013, psych following and recommend acute psychiatric inpatient treatment. Follow clinically. Subjective Date of service: 03/26/21 Interval history: Patient seen and examined no c/o chest pain or SOB no acute o/n event discussed with RN Objective - Exam Narrative Exam: GENERAL: well-developed and well-nourished elderly lying on bed appeared to be in no discomfort. HEENT: Normocephalic. Atraumatic. No conjunctival congestion or icterus. Patient has moist mucous membranes. NECK: Supple. Trachea midline. CHEST/LUNGS: Clear to auscultated bilaterally, breathing nonlabored. No wheezes crackles or rhonchi. HEART/CARDIOVASCULAR: Regular in rate and rhythm. S1 and S2 positive. ABDOMEN: Abdomen is soft, nontender. Patient has normal bowel sounds. SKIN: There is no rash. Warm and dry. NEURO: No focal motor deficit. Follows command. MUSCULOSKELETAL: No joint effusion or tenderness. EXTRIMITY: No edema, no cyanosis or clubbing. PSYCH: No good insight or judgment - Constitutional Vitals: Vital Signs - 12hr 03/25/21 03/26/21 03/26/21 23:19 04:32 10:00 Temperature 98.2 F Pulse Rate 94 H 82 Respiratory 18 Rate Blood Pressure 142/63 186/78 O2 Sat by Pulse 100 100 Oximetry - Labs CBC & Chem 7: 03/25/21 14:12 03/26/21 06:59 Labs: Abnormal lab results 03/25/21 03/25/21 03/25/21 Range/Units 13:58 14:12 14:12 MCH 27 L (28-32) pg Plt Count 132 L (140-440) K/mm3 Chloride 108.9 H (98-107) mmol/L Carbon Dioxide 18 L (22-30) mmol/L Glucose 234 H (65-100) mg/dL POC Glucose 250 H (70-105) mg/dL AST (5-40) units/L Albumin (3.9-5) g/dL 03/26/21 Range/Units 06:59 MCH (28-32) pg Plt Count (140-440) K/mm3 Chloride 110.2 H (98-107) mmol/L Carbon Dioxide (22-30) mmol/L Glucose 141 H (65-100) mg/dL POC Glucose (70-105) mg/dL AST 78 H (5-40) units/L Albumin 3.7 L (3.9-5) g/dL HEART Score - HEART Score Troponin: Troponin T < 0.010 ng/mL (0.00-0.029) 03/25/21 14:12
--- NOTE | 2021-03-26 11:56 | Consultation ---
History of Present Illness - Reason for Consult Consult date: 03/26/21 Reason for consult: Mental health evaluation - Chief Complaint Chief complaint: confused and combative - History of Present Psychiatric Illness Per Note:70 YO Female with HTN, HLD, DM, Cocaine Dependence, Vascular Dementia, Cerebral Atherosclerosis, Depression presents to ED for evaluation. Patient has diminished cognition and is unable to provide history. Patient history taken from EMS staff, ED staff, as well as the patient's daughter who was made available by telephone for interview. As per daughter the patient has "been on a crack binge" for the past 1 week and has experienced increased weakness, confusion, agitation, and aggressive behavior over the same timeframe. The patient was found unresponsive by the daughter today. EMS was subsequently notified and upon arrival the patient was found to be in distress and transported to [facility] for further care and evaluation of the aforementioned symptoms. The patient was seen and evaluated in the emergency department. All lab and imaging studies reviewed. The patient was found to be incoherent, combative, hyperactive, agitated, with tangential thinking, with garbled and nonsensical speech. The patient was found to have clinical symptoms consistent with cocaine induced delirium secondary to cocaine toxicity, metabolic encephalopathy. The patient was treated with supportive care and admitted to medical floor with remote telemetry monitoring. An attempt was made to avoid restraint placement, however; due to increased combativeness and high risk for self injury the patient was placed in medical restraints. No reports of fever, chills, chest pain, palpitation, productive cough, skin rash, recent ill contacts, or known exposure to COVID-19. Prior admission on 09/09/2019 reviewed. All medication listed at time of admission has been reconciled. Advanced care planning conducted in ED. Marga Diaz is a 70 year old female with a history of Depression and Cocaine use disorder. In my interview with the patient, she is alert to self, confused and irritable; she is on 2 points soft wrist restraints. When asked about her Cocaine use she reports that " I used a little cocaine a long time ago." The patient denies having any current suicidal/homicidal ideation and denies hallucinations. PAST PSYCHIATRIC HISTORY: Diagnoses: Depression and Cocaine use disorder Suicide attempts or Self-harm behavior: Denies Prior psychiatric hospitalizations:Denies Substance Abuse history:Cocaine Previous psychiatric medications tried: Unknown Outpatient treatment: Denies PAST MEDICAL HISTORY: Family Psychiatric History: None reported or documented SOCIAL HISTORY Marital Status: Single Living Arrangements: Lives with daughter Employment Status: Retired Access to guns/weapons: Denies Education: some college History of Abuse: Denies Legal History: Denies REVIEW OF SYSTEMS Constitutional: Negative for weight loss ENT: Negative for stridor Respiratory: Negative for cough or hemoptysis All other systems reviewed and are negative MENTAL STATUS EXAMINATION General Appearance and Behavior: Age appropriate, good hygiene, not wearing appropriate clothes, good eye contact, cooperative polite with questioning. Cooperation: Participating/engaged Psychomotor Behavior: Psychomotor normal Mood: Confused Affect and affective range: congruent to stated mood Thought Process: Compulsions Thought Content: Not suicidal Speech: Normal tone and pace Suicidal Ideation: Denies Homicidal Ideation: Denies Hallucinations: Denies Delusions: Denies Impulse Control: Questionable Insight and Judgment: Limited insight and poor judgment Memory: abnormal Attention: Divided Orientation: A/o Assessment and Plan (1)Major depressive disorder (2) Cocaine use disorder- Treatment Plan 1013 I agree with the current treatment plan Disposition: Recommend acute psychiatric inpatient treatment Will follow. Thanks Case staffed with Dr. Muller Medications and Allergies Medications and Allergies Medications and Allergies Allergies Allergy/AdvReac Type Severity Reaction Status Date / Time codeine Allergy Rash Verified 04/02/13 11:07 Home Medications Medication Instructions Recorded Confirmed Last Taken Type Rosuvastatin (Nf) [Crestor] 10 mg PO QHS 04/02/13 03/25/21 Unknown History diazePAM TAB [Valium] 5 mg PO TID PRN #15 tablet 04/02/13 03/25/21 Unknown Rx OLANzapine [ZyPREXA] 2.5 mg PO QHS tablet 04/06/19 03/25/21 Unknown Rx Amitriptyline HCl 150 mg PO HS 09/09/19 03/25/21 Unknown History Insulin Aspart Prot/Aspart(Nf) 20 units IM TID 09/10/19 03/25/21 09/09/19 History [NovoLOG Mix 70/30 VIAL] Insulin Lispro 10 units IM TID 09/10/19 03/25/21 09/09/19 History carvediloL [Coreg] 25 mg PO BID #60 tablet 09/11/19 03/25/21 Unknown Rx cephALEXin [Keflex] 500 mg PO Q12HR #6 cap 09/11/19 03/25/21 Unknown Rx Active Meds: Active Medications Acetaminophen (Acetaminophen 325 Mg Tab) 650 mg PO Q4H PRN PRN Reason: Pain MILD(1-3)/Fever >100.5/[facility]INSON Albuterol (Albuterol 2.5 Mg/3 Ml Nebu) 2.5 mg IH Q4HRT PRN PRN Reason: Shortness Of Breath Carvedilol (Carvedilol 25 Mg Tab) 25 mg PO BID [facility] Last Admin: 03/26/21 10:00 Dose: 25 mg Documented by: Hydralazine HCl (Hydralazine 25 Mg Tab) 50 mg PO Q8HR [facility] Hydromorphone HCl (Hydromorphone 1 Mg/1 Ml Inj) 0.5 mg IV Q23H PRN PRN Reason: Pain , Severe (7-10) Last Admin: 03/26/21 00:08 Dose: 0.5 mg Documented by: Sodium Chloride (Nacl 0.9% 1000 Ml) 1,000 mls @ 42 mls/hr IV ONCE ONE Stop: 03/26/21 15:44 Last Admin: 03/25/21 16:45 Dose: 42 mls/hr Documented by: Olanzapine (Olanzapine 2.5 Mg Tab) 2.5 mg PO QHS [facility] Last Admin: 03/26/21 00:13 Dose: 2.5 mg Documented by: Ondansetron HCl (Ondansetron 4 Mg/2 Ml Inj) 4 mg IV Q8H PRN PRN Reason: Nausea And Vomiting Oxycodone/Acetaminophen (Oxycodone /Acetaminophen 5-325mg Tab) 1 tab PO Q16H PRN PRN Reason: Pain, Moderate (4-6) Sodium Chloride (Sodium Chloride 0.9% 10 Ml Flush Syringe) 10 ml IV BID [facility] Last Admin: 03/26/21 10:01 Dose: 10 ml Documented by: Sodium Chloride (Sodium Chloride 0.9% 10 Ml Flush Syringe) 10 ml IV PRN PRN PRN Reason: LINE FLUSH Mental Status Exam - Vital signs Last Vital Signs Temp 98.2 F 03/26/21 04:32 Pulse 82 03/26/21 10:00 Resp 18 03/26/21 04:32 BP 186/78 03/26/21 10:00 Pulse Ox 100 03/26/21 04:32 Results Result Diagrams: 03/25/21 14:12 03/26/21 06:59 Abnormal lab results 03/25/21 03/25/21 03/25/21 Range/Units 13:58 14:12 14:12 MCH 27 L (28-32) pg Plt Count 132 L (140-440) K/mm3 Chloride 108.9 H (98-107) mmol/L Carbon Dioxide 18 L (22-30) mmol/L Glucose 234 H (65-100) mg/dL POC Glucose 250 H (70-105) mg/dL AST (5-40) units/L Albumin (3.9-5) g/dL 03/26/21 Range/Units 06:59 MCH (28-32) pg Plt Count (140-440) K/mm3 Chloride 110.2 H (98-107) mmol/L Carbon Dioxide (22-30) mmol/L Glucose 141 H (65-100) mg/dL POC Glucose (70-105) mg/dL AST 78 H (5-40) units/L Albumin 3.7 L (3.9-5) g/dL All other labs normal.
[2021-03-26] MEDS: hydrALAZINE 25 MG TAB PO SCH ×2 (14:59→23:02)
[2021-03-26] MEDS: SODIUM CHLORIDE 0.9% 1000 ML 1,000 ML ONE ×2 (18:53→19:05)
[2021-03-27 02:03] LABS: Bacteria,Urine 1+ /HPF (Negative); Bilirubin,Urine NEG (Negative); Blood,Urine SM (Negative); Color,Urine Yellow (Yellow); Mucus,Urine FEW /HPF; Protein,Urine <15 mg/dL mg/dL (Negative); Urobilinogen,Urine < 2.0 mg/dL (<2.0)
[2021-03-27] MEDS: hydrALAZINE 25 MG TAB PO SCH ×3 (05:42→21:34)
[2021-03-27] MEDS: carvediloL 25 MG TAB PO SCH ×2 (10:06→21:34)
--- NOTE | 2021-03-27 15:17 | Progress Note ---
Assessment and Plan 70 year old female with a history of Depression and Cocaine use disorder presented with AMS -- Cocaine delirium improved. benzodiazepine therapy as clinically indicated, aspiration precautions, fall precautions, neurochecks, telemetry monitoring. psych following -- Metabolic encephalopathy likely from cocaine and underlying dementia CT head unremarkable, neuro check, seizure precaution of aspiration precautions, fall precautions. -- Vascular dementia Verbal prompting, verbal redirection, benzodiazepine therapy as clinically indic ated -- HTN (hypertension) Monitor blood pressure every shift, continue medical management -- HLD (hyperlipidemia) Low-cholesterol diet, statin therapy as clinically indicated -- Major depression Mental health team consulted, for evaluation to [facility] unit when medically optimized. -- DVT prophylaxis SCD to bilateral lower extremities while in bed --Full code status Daily clinical course: 03/26/21: Psych following, recommended inpt psych admission. supportive care 03/27/21: medically stable. d/c planning when clears by psych. follow clinically Subjective Date of service: 03/27/21 Interval history: Patient seen and examined no c/o chest pain or SOB no acute o/n event tolerating diet discussed with RN Objective - Constitutional Vitals: Vital Signs - 12hr 03/27/21 03/27/21 03/27/21 05:41 05:42 06:05 Temperature 98.2 F 98.1 F Pulse Rate 88 88 89 Respiratory 18 20 Rate Blood Pressure 153/85 153/85 155/78 O2 Sat by Pulse 100 98 Oximetry 03/27/21 03/27/21 03/27/21 09:06 09:47 11:00 Temperature Pulse Rate 94 H Respiratory Rate Blood Pressure O2 Sat by Pulse 99 100 96 Oximetry 03/27/21 03/27/21 11:38 14:46 Temperature 98.3 F Pulse Rate 93 H 86 Respiratory 19 Rate Blood Pressure 113/57 115/56 O2 Sat by Pulse 98 Oximetry - Labs CBC & Chem 7: 03/25/21 14:12 03/26/21 06:59 HEART Score - HEART Score Troponin: Troponin T < 0.010 ng/mL (0.00-0.029) 03/25/21 14:12
[2021-03-28] MEDS: hydrALAZINE 25 MG TAB PO SCH ×3 (05:31→22:05)
--- NOTE | 2021-03-28 08:38 | Progress Note ---
Assessment and Plan Assessment and plan: 70 year old female with a history of Depression and Cocaine use disorder presented with AMS -- Cocaine delirium improved. benzodiazepine therapy as clinically indicated, aspiration precautions, fall precautions, neurochecks, telemetry monitoring. psych following -- Metabolic encephalopathy likely from cocaine and underlying dementia CT head unremarkable, neuro check, seizure precaution of aspiration precautions, fall precautions. -- Vascular dementia Verbal prompting, verbal redirection, benzodiazepine therapy as clinically indicated -- HTN (hypertension) Monitor blood pressure every shift, continue medical management -- HLD (hyperlipidemia) Low-cholesterol diet, statin therapy as clinically indicated -- Major depression Mental health team consulted, for evaluation to [facility] psych unit when medically optimized. -- DVT prophylaxis SCD to bilateral lower extremities while in bed --Full code status Daily clinical course: 03/26/21: Psych following, recommended inpt psych admission. supportive care 03/27/21: medically stable. d/c planning when clears by psych. follow clinically History Interval history: I seen and examined the patient at the bedside Patient has no new complaints vital signs noted awaiting clearance from psych for discharge Hospitalist Physical - Constitutional Vitals: Temp Pulse Resp BP Pulse Ox 98.0 F 84 20 137/62 96 03/28/21 06:34 03/28/21 06:34 03/28/21 06:34 03/28/21 06:34 03/28/21 07:05 General appearance: Present: mild distress, well-nourished - EENT Eyes: Present: PERRL, EOM intact - Neck Neck: Present: supple, normal ROM - Respiratory Respiratory effort: normal Respiratory: bilateral: diminished, negative: rales, rhonchi, wheezing - Cardiovascular Rhythm: regular Heart Sounds: Present: S1 & S2 - Extremities Extremities: no ischemia, No edema - Abdominal General gastrointestinal: soft, non-tender, non-distended, normal bowel sounds - Integumentary Integumentary: Present: clear, warm - Psychiatric Psychiatric: appropriate mood/affect, cooperative - Neurologic Neurologic: moves all extremities HEART Score - HEART Score Troponin: Troponin T < 0.010 ng/mL (0.00-0.029) 03/25/21 14:12 Results - Labs CBC & Chem 7: 03/25/21 14:12 03/26/21 06:59 Labs: Laboratory Last Values WBC 6.6 K/mm3 (4.5-11.0) 03/25/21 14:12 RBC 4.02 M/mm3 (3.65-5.03) 03/25/21 14:12 Hgb 10.7 gm/dl (10.1-14.3) 03/25/21 14:12 Hct 31.8 % (30.3-42.9) 03/25/21 14:12 MCV 79 fl (79-97) 03/25/21 14:12 MCH 27 pg (28-32) L 03/25/21 14:12 MCHC 34 % (30-34) 03/25/21 14:12 RDW 13.9 % (13.2-15.2) 03/25/21 14:12 Plt Count 132 K/mm3 (140-440) L 03/25/21 14:12 Sodium 145 mmol/L (137-145) D 03/26/21 06:59 Potassium 4.0 mmol/L (3.6-5.0) 03/26/21 06:59 Chloride 110.2 mmol/L (98-107) H 03/26/21 06:59 Carbon Dioxide 23 mmol/L (22-30) 03/26/21 06:59 Anion Gap 16 mmol/L 03/26/21 06:59 BUN 10 mg/dL (7-17) 03/26/21 06:59 Creatinine 0.7 mg/dL (0.6-1.2) 03/26/21 06:59 Estimated GFR > 60 ml/min 03/26/21 06:59 BUN/Creatinine Ratio 14 % 03/26/21 06:59 Glucose 141 mg/dL (65-100) H 03/26/21 06:59 POC Glucose 250 mg/dL (70-105) H 03/25/21 13:58 Calcium 9.3 mg/dL (8.4-10.2) 03/26/21 06:59 Total Bilirubin 0.50 mg/dL (0.1-1.2) 03/26/21 06:59 AST 78 units/L (5-40) H 03/26/21 06:59 ALT 36 units/L (7-56) 03/26/21 06:59 Alkaline Phosphatase 90 units/L (35-129) 03/26/21 06:59 Troponin T < 0.010 ng/mL (0.00-0.029) 03/25/21 14:12 Total Protein 7.8 g/dL (6.3-8.2) 03/26/21 06:59 Albumin 3.7 g/dL (3.9-5) L 03/26/21 06:59 Albumin/Globulin Ratio 0.9 % 03/26/21 06:59 Urine Color Yellow (Yellow) 03/26/21 13:26 Urine Turbidity Slightly-cloudy (Clear) 03/26/21 13:26 Urine pH 7.0 (5.0-7.0) 03/26/21 13:26 Ur Specific [place] 1.006 (1.003-1.030) 03/26/21 13:26 Urine Protein <15 mg/dl mg/dL (Negative) 03/26/21 13:26 Urine Glucose (UA) Neg mg/dL (Negative) 03/26/21 13:26 Urine Ketones Neg mg/dL (Negative) 03/26/21 13:26 Urine Blood Sm (Negative) 03/26/21 13:26 Urine Nitrite Neg (Negative) 03/26/21 13:26 Urine Bilirubin Neg (Negative) 03/26/21 13:26 Urine Urobilinogen < 2.0 mg/dL (<2.0) 03/26/21 13:26 Ur Leukocyte Esterase Tr (Negative) 03/26/21 13:26 Urine WBC (Auto) 6.0 /HPF (0.0-6.0) 03/26/21 13:26 Urine RBC (Auto) 1.0 /HPF (0.0-6.0) 03/26/21 13:26 Urine Bacteria (Auto) 1+ /HPF (Negative) 03/26/21 13:26 Urine Mucus Few /HPF 03/26/21 13:26 Urine Opiates Screen Presumptive negative 03/25/21 Unknown Urine Methadone Screen Presumptive negative 03/25/21 Unknown Ur Barbiturates Screen Presumptive negative 03/25/21 Unknown Ur Phencyclidine Scrn Presumptive negative 03/25/21 Unknown Ur Amphetamines Screen Presumptive negative 03/25/21 Unknown U Benzodiazepines Scrn Presumptive negative 03/25/21 Unknown Urine Cocaine Screen Presumptive positive 03/25/21 Unknown U Marijuana (THC) Screen Presumptive negative 03/25/21 Unknown Drugs of Abuse Note Disclamer 03/25/21 Unknown Velásquez/IV: Voiding Method External Female Catheter Active Medications - Current Medications Current Medications: Generic Name Dose Route Start Last Admin Trade Name Freq PRN Reason Stop Dose Admin Acetaminophen 650 mg 03/25/21 16:21 Acetaminophen 325 Mg Tab PO Q4H PRN Pain MILD(1-3)/Fever >100.5/[facility]SON Albuterol 2.5 mg 03/25/21 16:21 Albuterol 2.5 Mg/3 Ml Nebu IH Q4HRT PRN Shortness Of Breath Carvedilol 25 mg 03/25/21 22:00 03/27/21 21:34 Carvedilol 25 Mg Tab PO 25 mg BID ANDREW Administration Hydralazine HCl 50 mg 03/26/21 14:00 03/28/21 05:31 Hydralazine 25 Mg Tab PO 50 mg Q8HR ANDREW Administration Hydromorphone HCl 0.5 mg 03/25/21 16:21 03/26/21 00:08 Hydromorphone 1 Mg/1 Ml Inj IV 0.5 mg Q23H PRN Administration Pain , Severe (7-10) Olanzapine 2.5 mg 03/25/21 22:00 03/27/21 21:34 Olanzapine 2.5 Mg Tab PO 2.5 mg QHS ANDREW Administration Ondansetron HCl 4 mg 03/25/21 16:21 Ondansetron 4 Mg/2 Ml Inj IV Q8H PRN Nausea And Vomiting Oxycodone/Acetaminophen 1 tab 03/25/21 16:21 Oxycodone /Acetaminophen 5-325mg Tab PO Q16H PRN Pain, Moderate (4-6) Sodium Chloride 10 ml 03/25/21 22:00 03/28/21 04:39 Sodium Chloride 0.9% 10 Ml Flush Syringe IV 10 ml BID ANDREW Administration Sodium Chloride 10 ml 03/25/21 16:21 Sodium Chloride 0.9% 10 Ml Flush Syringe IV PRN PRN LINE FLUSH
[2021-03-28] MEDS: carvediloL 25 MG TAB PO SCH ×2 (09:29→22:04)
--- NOTE | 2021-03-28 11:21 | Progress Note ---
Subjective - Reason for Consult Consult date: 03/28/21 Reason for consult: AMS - Chief Complaint Chief complaint: The patient was seen today, she is calm, alert and oriented. She reports feeling better. The patient denies any current suicidal/homicidal ideation and denies hallucinations. No withdrawal symptoms stated. REVIEW OF SYSTEMS Constitutional: Negative for weight loss ENT: Negative for stridor Respiratory: Negative for cough or hemoptysis All other systems reviewed and are negative MENTAL STATUS EXAMINATION General Appearance and Behavior: Age appropriate, good hygiene, not wearing appropriate clothes, good eye contact, cooperative polite with questioning. Cooperation: Participating/engaged Psychomotor Behavior: Psychomotor normal Mood: "okay" Affect and affective range: congruent to stated mood Thought Process: goal directed Thought Content: Not suicidal Speech: Normal tone and pace Suicidal Ideation: Denies Homicidal Ideation: Denies Hallucinations: Denies Delusions: Denies Impulse Control: Questionable Insight and Judgment: Limited insight and fair judgment Memory: normal Attention: Divided Orientation: A/o Assessment and Plan (1)Major depressive disorder (2) Cocaine use disorder- Treatment Plan Discontinue 1013 I agree with the current treatment plan Disposition: Do not recommend acute psychiatric inpatient treatment. Rn Ent will provide patient with psychiatry out patient resources. Will sign off. Thanks Case staffed with Dr. Muller Medications and Allergies Mental Status Exam - Vital signs Last Vital Signs Temp 98.0 F 03/28/21 06:34 Pulse 102 H 03/28/21 09:29 Resp 20 03/28/21 06:34 BP 125/65 03/28/21 09:29 Pulse Ox 96 03/28/21 07:05
[2021-03-29 06:10] VITALS: BP 132/64
[2021-03-29] MEDS: hydrALAZINE 25 MG TAB PO SCH (06:19)
--- NOTE | 2021-03-29 07:48 | Discharge Summary ---
Providers - Providers Date of Admission: 03/25/21 16:21 Date of discharge: 03/29/21 Attending physician: HUGH VELAZQUEZ Primary care physician: BEAUTY DIRECTOR Hospitalization Reason for admission: Metabolic encephalopathy/altered level of consciousness/cocaine abuse Condition: Stable Pertinent studies: CT head without contrast; no acute abnormality Chest x-ray; no acute abnormality Hospital course: 70 year old female with a history of Depression and Cocaine use disorder admitted with AMS 70 YO Female with HTN, HLD, DM, Cocaine Dependence, Vascular Dementia, Cerebral Atherosclerosis, Depression was admitted through emergency room with altered level of consciousness and delirium, patient has history of cocaine abuse, patient's drug screen is positive for cocaine, patient symptoms are probably due to cocaine induced delirium, patient was admitted symptomatically managed and as patient was combative and with acute psychosis patient was placed on 1013 status Evaluated by psych in consultation and medications were optimized. Patient required restraints for safety, psych has optimized her medications, symptoms slowly but gradually improved, psych did not recommend inpatient psych therapy. Patient symptoms slowly but gradually improved, today patient is comfortable no new complaints vital signs stable, physical examination prior to discharge is unremarkable Psych has cleared the patient for discharge and follow-up with psychiatrist per schedule Patient's 1013 was discontinued, today vital signs are stable, case management has evaluated the patient assisted in discharge planning. Patient is being discharged with family, advised to follow primary care physician and psychiatrist per schedule. Cleared by psych for discharge and follow-up outpatient Patient is stable at discharge Discharge diagnosis: -- Cocaine abuse /delirium improved. benzodiazepine therapy as clinically indicated, aspiration pr ecautions, fall precautions, outpatient follow-up with psych -- Metabolic encephalopathy/improved likely from cocaine and underlying dementia CT head unremarkable, neuro check, seizure precaution of aspiration precautions, fall precautions. -- Vascular dementia Verbal prompting, verbal redirection, benzodiazepine therapy as clinically indicated -- HTN (hypertension) Monitor blood pressure every shift, continue medical management -- HLD (hyperlipidemia) Low-cholesterol diet, statin therapy as clinically indicated -- Major depression Mental health team consulted, for evaluation to [facility] unit when medically optimized. -- DVT prophylaxis SCD to bilateral lower extremities while in bed. 1013 discontinue per psych Psych cleared for discharge and follow-up outpatient Stable at discharge Disposition: 01 HOME / SELF CARE / HOMELESS Final Discharge Diagnosis (Prints w/discharge instructions): Cocaine abuse /delirium. Metabolic encephalopathy improved vascular dementia. Dyslipidemia. Type 2 diabetes mellitus. Major depression Time spent for discharge: 35 min Core Measure Documentation - Palliative Care Palliative Care/ Comfort Measures: Not Applicable - Core Measures Any of the following diagnoses?: none Exam - Constitutional Vitals: Temp Pulse Resp BP Pulse Ox 98.2 F 86 18 132/64 99 03/29/21 05:49 03/29/21 06:19 03/29/21 05:49 03/29/21 06:19 03/29/21 05:49 General appearance: Present: no acute distress, well-nourished - EENT Eyes: Present: PERRL, EOM intact - Neck Neck: Present: supple, normal ROM - Respiratory Respiratory effort: normal Respiratory: bilateral: diminished, negative: rales, rhonchi, wheezing - Cardiovascular Rhythm: regular Heart Sounds: Present: S1 & S2 - Extremities Extremities: no ischemia, No edema - Abdominal General gastrointestinal: Present: soft, non-tender, non-distended, normal bowel sounds - Integumentary Integumentary: Present: clear, warm - Musculoskeletal Musculoskeletal: strength equal bilaterally - Psychiatric Psychiatric: appropriate mood/affect, cooperative - Neurologic Neurologic: moves all extremities Plan Activity: advance as tolerated Diet: diabetic Additional Instructions: Your blood sugars are in the lower range. Hold insulin and resume when the blood sugars are high, in consultation with primary care physician. If you have worsening symptoms contact MD or go [facility] the [facility]. Advised to follow primary care physician in 3 to 5 days, psychiatrist and 1 to 2 weeks. Strongly advised to quit cocaine and alcohol use Follow up with: LEI AARON MD [Primary Care Provider] - 3-5 Days TITO MILNER MD [Staff Physician] - 14 Days Prescriptions: carvediloL [Coreg] 25 mg PO BID #60 tablet Hydralazine HCl 50 mg PO Q8H #90 tablet OLANzapine [ZyPREXA] 2.5 mg PO QHS #30 tablet
[2021-03-29] MEDS: carvediloL 25 MG TAB PO SCH (10:21)
--- NOTE | 2021-03-30 10:08 | Electrocardiograph Report ---
[facility] Test Date: 2021-03-26 Test Time: 08:00:51 Pat Name: SAAD VELAZQUEZ Department: Room: A377 Gender: F [employer] Supervisor: JULY : [id number] Requested By: ARI WILKERSON Order Number: [id number] Reading MD: Alyx Pate Measurements Intervals Burt Rate: 104 P: 37 FL: 188 QRS: 9 QRSD: 110 T: 28 QT: 354 QTc: 466 Interpretive Statements Sinus tachycardia Probable left ventricular hypertrophy Possible inferior infarct, old No previous ECG available for comparison Electronically Signed On 03-30-2021 10:07:53 EDT by Alyx Pate
== END 2021-03-29 13:51 | disposition home or self-care (01) | DRG 917 ==
LOC: ED 13:54 → 3A 15:54 → OBSVTOIN 16:21 → 3A 16:22
PROVIDERS: ADMIT Internal Medicine; ATTEND Internal Medicine
DX: T40.5X1A Poisoning by cocaine, accidental (unintentional), initial encounter (principal); G92.8 Other toxic encephalopathy; F14.121 Cocaine abuse with intoxication with delirium; F15.90 Other stimulant use, unspecified, uncomplicated; F01.50 Vascular dementia, unspecified severity, without behavioral disturbance, psychotic disturbance, mood disturbance, and anxiety; I67.2 Cerebral atherosclerosis; Z86.79 Personal history of other diseases of the circulatory system; Z20.822 Contact with and (suspected) exposure to COVID-19; Z79.4 Long term (current) use of insulin; I10 Essential (primary) hypertension; E11.9 Type 2 diabetes mellitus without complications; F20.9 Schizophrenia, unspecified; Z90.710 Acquired absence of both cervix and uterus; Z82.49 Family history of ischemic heart disease and other diseases of the circulatory system; F32.9 Major depressive disorder, single episode, unspecified; E78.2 Mixed hyperlipidemia; Y92.89 Other specified places as the place of occurrence of the external cause
CPT/HCPCS: 36415; 70450; 71045; 80048; 80053; 80307; 81001; 82962; 84484; 85027; 93005; 94640; 94760; G0378; J0360; J1170; J2310; J2405; J7030; U0003

== ENCOUNTER 2021-04-06 06:52 | Inpatient (IN) | payer MEDICARE ==
--- NOTE | 2021-04-06 08:04 | Event Note ---
ED Screening Note ED Screening Note: brought to ER by her daughter Najma whom I spoke to at length her no is [phone] pt d/c 03-28 she was admitted with MD/substance use per pt she went on cocaine binge with friend due to her physical ailments- she states this is not her normal behavior see hosp notes since dc pt has had an abn gait. she walks with a large kinetic type movement of right leg - leg has some pedal edema noted when walking her left arm swings as normal but right hangs flaccid she has a hx of dementia this gait has resulted in her falling at least 20 times since she left hosp she lives upstairs of her daughter and she says she hears her stumble pt denies any drugs or etoh; denies thc home meds crestor- off hydral zyprexa coreg--- all of these she is taking she also has bottle of antibiotic and flexeril- old which she asked me to dispose of This initial assessment/diagnostic orders/clinical plan/treatment(s) is/are subject to change based on patients health status, clinical progression and re- assessment by fellow clinical providers in the ED. Further treatment and workup at subsequent clinical providers discretion. Patient/guardian urged not to elope from the ED as their condition may be serious if not clinically assessed and managed. Initial orders include: staffed with Dr Garnica To FT for further neuro work up
--- NOTE | 2021-04-06 08:26 | Emergency Department Report ---
HPI - General Chief Complaint: Altered Mental Status Time Seen by Provider: 04/06/21 07:32 - HPI HPI: This is a 70-year-old -[place]wegian female presents to the emergency department with complaint of multiple recurrent falls, as well as right ankle pain and swelling. The patient was admitted here from 03/25 to 03/29 for encephalopathy. Initially, at that time, the patient had been found facedown by family and she was altered and nonverbal. She had a CT scan of the head without contrast that did not show any acute process. This patient has a history of vascular dementia, hypertension, hyperlipidemia, hyperthyroidism. Since discharge from this hospital the patient has had close to 20 different falls. Yesterday the patient fell in the bank and hit her head and chest. Patient says that her right ankle has been painful and swollen since she was admitted last time. Patient says that she does not have any aura or notion that she is about to fall and it happens suddenly. The patient is seen ambulatory in the emergency department with a slightly abnormal gait, that family says is abnormal for her. She denies any headache, vision change, slurred speech, numbness or paresthesias. ED Past Medical Hx - Past Medical History Previous Medical History?: Yes Hx Hypertension: Yes Hx Diabetes: Yes Hx Psychiatric Treatment: Yes (schizophrenia) Hx Dementia: Yes Additional medical history: chronic pain. Cannot be obtained for the patient secondary to altered mental status - Surgical History Past Surgical History?: Yes Additional Surgical History: hysterectomy - Social History Smoking Status: Never Smoker - Medications Home Medications: Home Medications Medication Instructions Recorded Confirmed Last Taken Type Rosuvastatin (Nf) [Crestor] 10 mg PO QHS 04/02/13 03/25/21 Unknown History Hydralazine HCl 50 mg PO Q8H #90 tablet 03/29/21 Unknown Rx OLANzapine [ZyPREXA] 2.5 mg PO QHS #30 tablet 03/29/21 Unknown Rx carvediloL [Coreg] 25 mg PO BID #60 tablet 03/29/21 Unknown Rx ED Review of Systems ROS: Stated complaint: FELL OVER 20X'S SWELLING R LEG/ANKLE Other details as noted in HPI Comment: All other systems reviewed and negative Constitutional: denies: chills, fever Eyes: denies: eye pain, vision change ENT: denies: ear pain, throat pain Respiratory: denies: cough, shortness of breath Cardiovascular: denies: chest pain, palpitations Gastrointestinal: denies: abdominal pain, vomiting Genitourinary: denies: dysuria, discharge Musculoskeletal: joint swelling, arthralgia Skin: denies: rash, lesions Neurological: weakness. denies: headache, numbness Physical Exam - Physical Exam Vital Signs: Vital Signs 04/06/21 07:12 Temperature 98.4 F Pulse Rate 89 Respiratory 16 Rate Blood Pressure 117/75 O2 Sat by Pulse 98 Oximetry Physical Exam: GENERAL: The patient is well-developed well-nourished. HENT: Normocephalic. Atraumatic. Patient has moist mucous membranes. EYES: Extraocular motions are intact. NECK: Supple. Trachea is midline. CHEST/LUNGS: Clear to auscultation. There is no respiratory distress noted. HEART/CARDIOVASCULAR: Regular. There is no tachycardia. There is no murmur. ABDOMEN: Abdomen is soft, nontender. Patient has normal bowel sounds. SKIN: Skin is warm and dry. Mild nonpitting swelling to the circumferential right ankle. NEURO: The patient is awake, alert, and cooperative. The patient has no focal neurologic deficits. Normal speech. Cranial nerves II through XII grossly intact. MUSCULOSKELETAL: There is some tenderness to palpation to the right ankle. Radial pulse +2/4 and capillary refill less than 2 seconds to the affected right foot. ED Course Vital Signs 04/06/21 07:12 Temperature 98.4 F Pulse Rate 89 Respiratory 16 Rate Blood Pressure 117/75 O2 Sat by Pulse 98 Oximetry ED Medical Decision Making - Lab Data Result diagrams: 04/06/21 08:49 04/06/21 08:49 Lab Results 04/06/21 04/06/21 04/06/21 Range/Units 08:49 08:49 08:49 WBC 5.8 (4.5-11.0) K/mm3 RBC 4.33 (3.65-5.03) M/mm3 Hgb 10.9 (10.1-14.3) gm/dl Hct 34.5 (30.3-42.9) % MCV 80 (79-97) fl MCH 25 L (28-32) pg MCHC 32 (30-34) % RDW 14.0 (13.2-15.2) % Plt Count 204 (140-440) K/mm3 Lymph % (Auto) 42.6 H (13.4-35.0) % [place] % (Auto) 10.9 H (0.0-7.3) % Eos % (Auto) 3.5 (0.0-4.3) % Baso % (Auto) 0.3 (0.0-1.8) % Lymph # (Auto) 2.5 (1.2-5.4) K/mm3 [place] # (Auto) 0.6 (0.0-0.8) K/mm3 Eos # (Auto) 0.2 (0.0-0.4) K/mm3 Baso # (Auto) 0.0 (0.0-0.1) K/mm3 Seg Neutrophils % 42.7 (40.0-70.0) % Seg Neutrophils # 2.5 (1.8-7.7) K/mm3 PT 13.4 (12.2-14.9) Sec. INR 0.92 (0.87-1.13) Sodium 139 (137-145) mmol/L Potassium 4.8 (3.6-5.0) mmol/L Chloride 107.1 H (98-107) mmol/L Carbon Dioxide 23 (22-30) mmol/L Anion Gap 14 mmol/L BUN 18 H (7-17) mg/dL Creatinine 0.8 (0.6-1.2) mg/dL Estimated GFR > 60 ml/min BUN/Creatinine Ratio 23 % Glucose 175 H (65-100) mg/dL Calcium 9.2 (8.4-10.2) mg/dL Phosphorus 4.60 H (2.5-4.5) mg/dL Magnesium 1.90 (1.7-2.3) mg/dL Total Bilirubin 0.20 (0.1-1.2) mg/dL AST 15 (5-40) units/L ALT 16 (7-56) units/L Alkaline Phosphatase 98 (35-129) units/L Troponin T (0.00-0.029) ng/mL Total Protein 7.3 (6.3-8.2) g/dL Albumin 3.4 L (3.9-5) g/dL Albumin/Globulin Ratio 0.9 % TSH (0.270-4.200) mlU/mL Free T4 (0.76-1.46) ng/dL 04/06/21 04/06/21 04/06/21 Range/Units 08:49 08:49 08:49 WBC (4.5-11.0) K/mm3 RBC (3.65-5.03) M/mm3 Hgb (10.1-14.3) gm/dl Hct (30.3-42.9) % MCV (79-97) fl MCH (28-32) pg MCHC (30-34) % RDW (13.2-15.2) % Plt Count (140-440) K/mm3 Lymph % (Auto) (13.4-35.0) % [place] % (Auto) (0.0-7.3) % Eos % (Auto) (0.0-4.3) % Baso % (Auto) (0.0-1.8) % Lymph # (Auto) (1.2-5.4) K/mm3 [place] # (Auto) (0.0-0.8) K/mm3 Eos # (Auto) (0.0-0.4) K/mm3 Baso # (Auto) (0.0-0.1) K/mm3 Seg Neutrophils % (40.0-70.0) % Seg Neutrophils # (1.8-7.7) K/mm3 PT (12.2-14.9) Sec. INR (0.87-1.13) Sodium (137-145) mmol/L Potassium (3.6-5.0) mmol/L Chloride (98-107) mmol/L Carbon Dioxide (22-30) mmol/L Anion Gap mmol/L BUN (7-17) mg/dL Creatinine (0.6-1.2) mg/dL Estimated GFR ml/min BUN/Creatinine Ratio % Glucose (65-100) mg/dL Calcium (8.4-10.2) mg/dL Phosphorus (2.5-4.5) mg/dL Magnesium (1.7-2.3) mg/dL Total Bilirubin (0.1-1.2) mg/dL AST (5-40) units/L ALT (7-56) units/L Alkaline Phosphatase (35-129) units/L Troponin T < 0.010 (0.00-0.029) ng/mL Total Protein (6.3-8.2) g/dL Albumin (3.9-5) g/dL Albumin/Globulin Ratio % TSH < 0.005 L (0.270-4.200) mlU/mL Free T4 1.84 H (0.76-1.46) ng/dL - EKG Data -: EKG Interpreted by Me EKG shows normal: sinus rhythm, axis, intervals, QRS complexes, ST-T waves Rate: normal - EKG Data When compared to previous EKG there are: previous EKG unavailable Interpretation: normal EKG - Radiology Data Radiology results: report reviewed, image reviewed interpreted by me: X-ray of the right ankle does not show any fracture, dislocation, or any acute process. CT BRAIN: 04/06/2021 INDICATION / CLINICAL INFORMATION: rle weakness; falling often; abnormal gate. COMPARISON: CT brain 03/25/2021 FINDINGS: BRAIN/INTRACRANIAL STRUCTURES: Unenhanced CT images of the brain were obtained and compared to the most recent prior exam from 03/25/2021. There is been no change. There is no evidence of acute abnormality. Ventricles and sulci are normal in size and shape. There is no evidence of hemorrhage or mass. There are no abnormal extra-axial fluid collections. EXTRACRANIAL STRUCTURES: Unremarkable. IMPRESSION: Negative unenhanced CT of the brain. No change when compared to 03/25/2021. - Medical Decision Making This patient presents to the emergency department with complaint of multiple recurrent falls over the past 10 days since the patient was last discharged from this hospital. Initially, in triage, the patient displayed an unstable gait and abnormal gait. The patient lives her right leg up almost as if she has a foot drop, but no visible foot drop, and then she steps very gingerly as if she is expecting there to be pain with bearing weight, but there is no wincing or grimacing seen. The patient also moves her left arm with ambulation but the right arm remains down at her side. Patient's daughter had said that this was a noticeable change in the patient. The patient also appears very unsteady when we tested her ambulation at bedside and down in the hallway in front of her room. CT of the head without contrast does not show any hemorrhage, large vessel occlusion, or any other acute process. X-ray of the right ankle does not show any fracture, dislocation, signs of osteomyelitis, or any other acute process. Patient's labs appear mostly unremarkable including CBC, metabolic panel, urinalysis, UDS, negative troponin. The patient does have a very low TSH level, and free T4 slightly high, showing hyperthyroidism. However the patient does not appear in any thyroid storm. EKG does not have any morphology consistent with ST elevation myocardial infarction. Patient will be admitted to the hospital for further evaluation and treatment was accepted for admission by the hospitalist service. - Differential Diagnosis Right foot drop, CVA, multiple sclerosis, electrolyte derangements Critical Care Time: No Critical care attestation.: If time is entered above; I have spent that time in minutes in the direct care of this critically ill patient, excluding procedure time. ED Disposition Clinical Impression: Recurrent falls, Gait instability, Hyperthyroidism Vascular dementia Qualifiers: Dementia behavioral disturbance: without behavioral disturbance Qualified Code(s): F01.50 - Vascular dementia without behavioral disturbance Disposition: 09 ADMITTED INPATIENT Is pt being admited?: Yes Condition: Fair Time of Disposition: 09:59
--- NOTE | 2021-04-06 08:49 | XRay Report ---
Right ankle, 3 views HISTORY: Pain COMPARISON: None FINDINGS: There is soft tissue swelling of the ankle, greatest laterally. No acute fracture or malali gnment. Ankle mortise is symmetric. Talar dome is intact. Moderate posterior subtalar and mild ankle osteoarthritis. Signer Name: Shen Son MD Signed: 04/06/2021 8:44 AM Workstation Name: [id number]
[2021-04-06 09:06] LABS: Basophils % (Auto) 0.3 % (0.0-1.8); Eosinophils # (Auto) 0.2 K/mm3 (0.0-0.4); Eosinophils % (Auto) 3.5 % (0.0-4.3); Hematocrit 34.5 % (30.3-42.9); Hemoglobin 10.9 gm/dl (10.1-14.3); Lymphocytes # (Auto) 2.5 K/mm3 (1.2-5.4); Lymphocytes % (Auto) 42.6 % (13.4-35.0); Mean Corpuscular HGB Conc 32 % (30-34); Mean Corpuscular Volume 80 fl (79-97); Monocytes # (Auto) 0.6 K/mm3 (0.0-0.8); Monocytes % (Auto) 10.9 % (0.0-7.3); Platelet Count 204 K/mm3 (140-440); Red Blood Count 4.33 M/mm3 (3.65-5.03)
--- NOTE | 2021-04-06 09:07 | Cat Scan Report ---
CT BRAIN: 04/06/2021 INDICATION / CLINICAL INFORMATION: rle weakness; falling often; abnormal gate. COMPARISON: CT brain 03/25/2021 FINDINGS: BRAIN/INTRACRANIAL STRUCTURES: Unenhanced CT images of the brain were obtained and compared to the mo st recent prior exam from 03/25/2021. There is been no change. There is no evidence of acute abnormality. Ventricles and sulci are normal in size and shape. There is no evidence of hemorrhage or mass. There are no abnormal extra-axial fluid collections. EXTRACRANIAL STRUCTURES: Unremarkable. IMPRESSION: Negative unenhanced CT of the brain. No change when compared to 03/25/2021. All CT scans at this location are performed using dose reduction to ALARA by means of automated expos ure control. Signer Name: Tito Bajwa MD Signed: 04/06/2021 9:02 AM Workstation Name: [id number]
[2021-04-06 09:18] LABS: INR 0.92 (0.87-1.13)
[2021-04-06 09:51] LABS: Alanine Aminotransferase 16 units/L (7-56); Albumin 3.4 g/dL (3.9-5); BUN/Creatinine Ratio 23; Blood Urea Nitrogen 18 mg/dL (7-17); Calcium 9.2 mg/dL (8.4-10.2); Hemolysis Index 5
[2021-04-06 10:54] LABS: Bacteria,Urine 1+ /HPF (Negative); Bilirubin,Urine NEG (Negative); Blood,Urine NEG (Negative); Color,Urine Straw (Yellow); Mucus,Urine FEW /HPF; Protein,Urine <15 mg/dL mg/dL (Negative); Urobilinogen,Urine < 2.0 mg/dL (<2.0)
[2021-04-06 11:08] LABS: Amphetamine Screen,Urine Negative; Benzodiazepines Screen,Urine Negative; Cannabinoid Screen,Urine Negative; Cocaine Screen,Urine Negative; Methadone Screen,Urine Negative; Opiate Screen,Urine Negative
--- NOTE | 2021-04-06 14:01 | History and Physical Report ---
History of Present Illness Date of examination: 04/06/21 Date of admission: 04/06/21 09:59 Chief complaint: Unsteady gait History of present illness: HPI: This is a 70-year-old -[place] female presents to the emergency department with complaint of multiple recurrent falls, as well as right ankle pain and swelling. The patient was admitted here from 03/25 to 03/29 for encephalopathy. Initially, at that time, the patient had been found facedown by family and she was altered and nonverbal. She had a CT scan of the head without contrast that did not show any acute process. This patient has a history of vascular dementia, hypertension, hyperlipidemia, hyperthyroidism. Since discharge from this hospital the patient has had close to 20 different falls. Yesterday the patient fell in the bank and hit her head and chest. Patient says that her right ankle has been painful and swollen since she was admitted last time. Patient says that she does not have any aura or notion that she is about to fall and it happens suddenly. The patient is seen ambulatory in the emergency department with a slightly abnormal gait, that family says is abnormal for her. She denies any headache, vision change, slurred speech, numbness or paresthesias. On my encounter, patient was resting comfortably. No acute complaints. States that she has had unsteady gait for quite some time since discharge. She states this gait imbalance is a daily occurence. She denies getting it evaluated as an outpatient. PMHx: Type 2 diabetes, hypertension, hyperthyroidism, hyperlipidemia, major depressive disorder, substance abuse disorder PSHx: denies. FHx: Reviewed noncontributory SHx: Tobacco use-denies ETOH Use-denies Recreational Drug Use-cocaine PCP- Dr Maynor Cooper ([place]) Sees endocrinology at [place] (does not know provider name) Medications and Allergies Allergies Allergy/AdvReac Type Severity Reaction Status Date / Time codeine Allergy Rash Verified 04/02/13 11:07 Home Medications Medication Instructions Recorded Confirmed Last Taken Type Rosuvastatin (Nf) [Crestor] 10 mg PO QHS 04/02/13 03/25/21 Unknown History Hydralazine HCl 50 mg PO Q8H #90 tablet 03/29/21 Unknown Rx OLANzapine [ZyPREXA] 2.5 mg PO QHS #30 tablet 03/29/21 Unknown Rx carvediloL [Coreg] 25 mg PO BID #60 tablet 03/29/21 Unknown Rx Review of Systems All systems: negative Neurological: ataxia, balance difficulties Exam - Physical Exam Narrative exam: Physical Exam: VITAL SIGNS: Reviewed. GENERAL: The patient appears normally developed, Vital signs as documented. HEAD: No signs of head trauma. EYES: Pupils are equal. Extraocular motions intact. EARS: Hearing grossly intact. MOUTH: Oropharynx is normal. NECK: No adenopathy, no JVD. CHEST: Chest with clear breath sounds bilaterally. No wheezes, rales, or rhonchi. CARDIAC: Regular rate and rhythm. S1 and S2, without murmurs, gallops, or rubs. VASCULAR: No Edema. Peripheral pulses normal and equal in all extremities. ABDOMEN: Soft, non tender and non distended. No rebound or guarding, and no masses palpated. Bowel Sounds normal. MUSCULOSKELETAL: Good range of motion of all major joints. Extremities without clubbing, cyanosis or edema. NEUROLOGIC EXAM: Alert oriented x 4, gait disturbance , right leg balance issues. no focal sensory deficits. PSYCHIATRIC: Mood normal. SKIN: detail exam as documented in skin assessment - Constitutional Vitals: Temp Pulse Resp BP Pulse Ox 98.4 F 89 16 117/75 98 04/06/21 07:12 04/06/21 07:12 04/06/21 07:12 04/06/21 07:12 04/06/21 08:27 HEART Score - HEART Score Troponin: Troponin T < 0.010 ng/mL (0.00-0.029) 04/06/21 08:49 Results - Labs CBC & Chem 7: 04/06/21 08:49 04/06/21 08:49 Labs: Laboratory Last Values WBC 5.8 K/mm3 (4.5-11.0) 04/06/21 08:49 RBC 4.33 M/mm3 (3.65-5.03) 04/06/21 08:49 Hgb 10.9 gm/dl (10.1-14.3) 04/06/21 08:49 Hct 34.5 % (30.3-42.9) 04/06/21 08:49 MCV 80 fl (79-97) 04/06/21 08:49 MCH 25 pg (28-32) L 04/06/21 08:49 MCHC 32 % (30-34) 04/06/21 08:49 RDW 14.0 % (13.2-15.2) 04/06/21 08:49 Plt Count 204 K/mm3 (140-440) 04/06/21 08:49 Lymph % (Auto) 42.6 % (13.4-35.0) H 04/06/21 08:49 [place] % (Auto) 10.9 % (0.0-7.3) H 04/06/21 08:49 Eos % (Auto) 3.5 % (0.0-4.3) 04/06/21 08:49 Baso % (Auto) 0.3 % (0.0-1.8) 04/06/21 08:49 Lymph # (Auto) 2.5 K/mm3 (1.2-5.4) 04/06/21 08:49 [place] # (Auto) 0.6 K/mm3 (0.0-0.8) 04/06/21 08:49 Eos # (Auto) 0.2 K/mm3 (0.0-0.4) 04/06/21 08:49 Baso # (Auto) 0.0 K/mm3 (0.0-0.1) 04/06/21 08:49 Seg Neutrophils % 42.7 % (40.0-70.0) 04/06/21 08:49 Seg Neutrophils # 2.5 K/mm3 (1.8-7.7) 04/06/21 08:49 PT 13.4 Sec. (12.2-14.9) 04/06/21 08:49 INR 0.92 (0.87-1.13) 04/06/21 08:49 Sodium 139 mmol/L (137-145) 04/06/21 08:49 Potassium 4.8 mmol/L (3.6-5.0) 04/06/21 08:49 Chloride 107.1 mmol/L (98-107) H 04/06/21 08:49 Carbon Dioxide 23 mmol/L (22-30) 04/06/21 08:49 Anion Gap 14 mmol/L 04/06/21 08:49 BUN 18 mg/dL (7-17) H 04/06/21 08:49 Creatinine 0.8 mg/dL (0.6-1.2) 04/06/21 08:49 Estimated GFR > 60 ml/min 04/06/21 08:49 BUN/Creatinine Ratio 23 % 04/06/21 08:49 Glucose 175 mg/dL (65-100) H 04/06/21 08:49 Calcium 9.2 mg/dL (8.4-10.2) 04/06/21 08:49 Phosphorus 4.60 mg/dL (2.5-4.5) H 04/06/21 08:49 Magnesium 1.90 mg/dL (1.7-2.3) 04/06/21 08:49 Total Bilirubin 0.20 mg/dL (0.1-1.2) 04/06/21 08:49 AST 15 units/L (5-40) 04/06/21 08:49 ALT 16 units/L (7-56) 04/06/21 08:49 Alkaline Phosphatase 98 units/L (35-129) 04/06/21 08:49 Troponin T < 0.010 ng/mL (0.00-0.029) 04/06/21 08:49 Total Protein 7.3 g/dL (6.3-8.2) 04/06/21 08:49 Albumin 3.4 g/dL (3.9-5) L 04/06/21 08:49 Albumin/Globulin Ratio 0.9 % 04/06/21 08:49 TSH < 0.005 mlU/mL (0.270-4.200) L 04/06/21 08:49 Free T4 1.84 ng/dL (0.76-1.46) H 04/06/21 08:49 Urine Color Straw (Yellow) 04/06/21 Unknown Urine Turbidity Clear (Clear) 04/06/21 Unknown Urine pH 6.0 (5.0-7.0) 04/06/21 Unknown Ur Specific [place] 1.009 (1.003-1.030) 04/06/21 Unknown Urine Protein <15 mg/dl mg/dL (Negative) 04/06/21 Unknown Urine Glucose (UA) Neg mg/dL (Negative) 04/06/21 Unknown Urine Ketones Neg mg/dL (Negative) 04/06/21 Unknown Urine Blood Neg (Negative) 04/06/21 Unknown Urine Nitrite Neg (Negative) 04/06/21 Unknown Urine Bilirubin Neg (Negative) 04/06/21 Unknown Urine Urobilinogen < 2.0 mg/dL (<2.0) 04/06/21 Unknown Ur Leukocyte Esterase Neg (Negative) 04/06/21 Unknown Urine WBC (Auto) 1.0 /HPF (0.0-6.0) 04/06/21 Unknown Urine RBC (Auto) 1.0 /HPF (0.0-6.0) 04/06/21 Unknown U Epithel Cells (Auto) 10.0 /HPF (0-13.0) 04/06/21 Unknown Urine Bacteria (Auto) 1+ /HPF (Negative) 04/06/21 Unknown Urine Mucus Few /HPF 04/06/21 Unknown Urine Opiates Screen Negative 04/06/21 Unknown Urine Methadone Screen Negative 04/06/21 Unknown Ur Barbiturates Screen Negative 04/06/21 Unknown Ur Phencyclidine Scrn Negative 04/06/21 Unknown Ur Amphetamines Screen Negative 04/06/21 Unknown U Benzodiazepines Scrn Negative 04/06/21 Unknown Urine Cocaine Screen Negative 04/06/21 Unknown U Marijuana (THC) Screen Negative 04/06/21 Unknown Drugs of Abuse Note Disclamer 04/06/21 Unknown Assessment and Plan Assessment and plan: #Ataxia Was admitted 20 days ago for similar symptoms, stroke work-up completed was negative CT brain this admission negative for acute findings - CBC/CMP unremarkable -TSH < 0.005, free T4: 1.84 - PT/OT consults -MRI brain ordered -Neurology consult placed #Hyperthyroidism -TSH < 0.005, free T4: 1.84 Follows with endocrinology at [place], has missed appointments, does not remember name of physician States that she used to take medication but has not in quite some time #Type 2 diabetes with hyperglycemia Home regimen Novolin 70/30 insulin 20 units twice daily Accu-Cheks AC at bedtime -Basal bolus regimen with Lantus and scheduled regular insulin with meals -Correctional insulin for coverage -Avoid olanzapine. -Hemoglobin A1c ordered #Right ankle injury -Swollen right ankle, patient states that this acquired from multiple falls -XR of ankle: Soft tissue swelling, osteoarthritis. No evidence of acute fracture #Hypertension -Resume home Coreg and hydralazine -Continued vital sign monitoring #Psychiatric disorder -Currently on olanzapine. Would recommend we discontinue this medication as it is not recommended in diabetics #Hyperlipidemia -Resume home rosuvastatin #Cocaine abuse Was admitted 12 days ago for cocaine induced metabolic encephalopathy UDS presumptive positive for cocaine Dispo: Work up pending with MRI brain. Neuro consult placed. likely discharge in next 24 to 48 hours if negative. Concerned for uncontrolled hyperthyroidism and patient off of medication. Case management has already started SNF placement process.
[2021-04-06] MEDS ORDERED: oxyCODONE /ACETAMINOPHEN 5-325MG TAB PO PRN (14:02)
[2021-04-06] MEDS ORDERED: ACETAMINOPHEN 325 MG TAB PO PRN (14:02)
[2021-04-06] MEDS ORDERED: ONDANSETRON 4 MG/2 ML INJ IV PRN (14:02)
[2021-04-06] MEDS ORDERED: DEXTROSE 50% IN WATER (25GM) 50 ML SYRINGE IV PRN ×2 (14:02→14:03)
[2021-04-06] MEDS ORDERED: NON-FORMULARY EACH (Hydralazine Hcl [Hydralazine Hcl] 50 MG Tablet) PO SCH (14:30)
--- NOTE | 2021-04-06 16:03 | Consultation ---
History of Present Illness Consult date: 04/06/21 Chief complaint: C/C - The patient comes in for recurrant falls, there is no loss of conciouness . The patient was admitted to same hospital 20 days back. The patient was weak on the right side . There are no issues with balance , the patient reports walking patient falls . There is pain in the right back and neck . There is no numbness and tingling . Medications and Allergies Allergies Allergy/AdvReac Type Severity Reaction Status Date / Time codeine Allergy Rash Verified 04/02/13 11:07 Home Medications Medication Instructions Recorded Confirmed Last Taken Type Rosuvastatin (Nf) [Crestor] 10 mg PO QHS 04/02/13 03/25/21 Unknown History Hydralazine HCl 50 mg PO Q8H #90 tablet 03/29/21 Unknown Rx OLANzapine [ZyPREXA] 2.5 mg PO QHS #30 tablet 03/29/21 Unknown Rx carvediloL [Coreg] 25 mg PO BID #60 tablet 03/29/21 Unknown Rx Active Meds: Active Medications Acetaminophen (Acetaminophen 325 Mg Tab) 650 mg PO Q4H PRN PRN Reason: Pain MILD(1-3)/Fever >100.5/[place] Atorvastatin Calcium (Atorvastatin 20 Mg Tab) 20 mg PO QHS ANDREW Carvedilol (Carvedilol 25 Mg Tab) 25 mg PO BID ANDREW Dextrose (Dextrose 50% In Water (25gm) 50 Ml Syringe) 50 ml IV Q30MIN PRN; Protocol PRN Reason: Hypoglycemia Dextrose (Dextrose 50% In Water (25gm) 50 Ml Syringe) 50 ml IV Q30MIN PRN; Protocol PRN Reason: Hypoglycemia Enoxaparin Sodium (Enoxaparin 40 Mg/0.4 Ml Inj) 40 mg SUB-Q QDAY@2200 [facility]; Protocol Hydralazine HCl (Hydralazine 25 Mg Tab) 50 mg PO Q8HR ANDREW Insulin Glargine (Insulin Glargine 100 Units/Ml) 20 units SUB-Q QHS ANDREW Insulin Human Lispro (Insulin Lispro 100 Unit/Ml) 5 unit SUB-Q ACHS ANDREW Insulin Human Lispro (Insulin Lispro 100 Unit/Ml) 0 unit SUB-Q ACHS [facility]; Protocol Ondansetron HCl (Ondansetron 4 Mg/2 Ml Inj) 4 mg IV Q8H PRN PRN Reason: Nausea And Vomiting Oxycodone/Acetaminophen (Oxycodone /Acetaminophen 5-325mg Tab) 1 tab PO Q6H PRN PRN Reason: Pain, Moderate (4-6) Sodium Chloride (Sodium Chloride 0.9% 10 Ml Flush Syringe) 10 ml IV BID ANDREW Sodium Chloride (Sodium Chloride 0.9% 10 Ml Flush Syringe) 10 ml IV PRN PRN PRN Reason: LINE FLUSH Physical Examination - Vital Signs Vital Signs: Vital Signs Temp Pulse Resp BP Pulse Ox 98.4 F 89 16 117/75 98 04/06/21 07:12 04/06/21 07:12 04/06/21 07:12 04/06/21 07:12 04/06/21 07:12 - Physical Exam Narrative exam: The patient is alert . There is weakness on the right lower extremity > left lower extremity . Gait is not tested . Results - Laboratory Findings CBC and BMP: 04/06/21 08:49 04/06/21 08:49 Abnormal Lab Findings: Abnormal Labs 04/06/21 04/06/21 04/06/21 08:49 08:49 08:49 MCH 25 L Lymph % (Auto) 42.6 H [place] % (Auto) 10.9 H Chloride 107.1 H BUN 18 H Glucose 175 H Hemoglobin A1c Phosphorus 4.60 H Albumin 3.4 L TSH < 0.005 L Free T4 04/06/21 04/06/21 08:49 08:49 MCH Lymph % (Auto) [place] % (Auto) Chloride BUN Glucose Hemoglobin A1c 8.6 H Phosphorus Albumin TSH Free T4 1.84 H Assessment and Plan Impression / Plan: 1. Recurrant Falls with Right LE weakness . ( In the differential diagnosis includes - rule Cervical Spinal Stenosis / Demyelinating Disease ). 2. MRI Brain + MRI Cervical Spine no contrast . 3. Needs PT for Gait and Balance . 4. ? LP 5. Check Vitamin B12/ D / Ferritin Level. 6. Out Patient NCV 7. Follow up in am with results . Dr. Vazquez
--- NOTE | 2021-04-06 17:09 | Magnetic Resonance Report ---
MRI BRAIN 04/06/2021 INDICATION / CLINICAL INFORMATION: ataxia, poss cva. TECHNIQUE: Multiplanar, multisequence MR images of the brain were obtained. COMPARISON: CT brain 04/06/2021 FINDINGS: BRAIN / INTRACRANIAL CONTENTS: Unenhanced MR images of the brain demonstrate no evidence of acute abn ormality. Ventricles and sulci are normal in size and shape for a patient of this age. There is no evidence of acute or chronic ischemic injury, demyelination, hemorrhage, or mass. Brain p arenchyma is very well preserved for age. There are no abnormal extra-axial fluid collections. EXTRACRANIAL: Unremarkable CRANIOCERVICAL JUNCTION: No significant abnormality. VASCULAR FLOW-VOIDS: No significant abnormality. IMPRESSION: Negative unenhanced MRI of the brain. Signer Name: Tito Bajwa MD Signed: 04/06/2021 5:05 PM Workstation Name: [id number]
[2021-04-06] MEDS: hydrALAZINE 25 MG TAB PO SCH ×2 (17:26→22:40)
[2021-04-06] MEDS: carvediloL 25 MG TAB PO SCH ×2 (18:21→22:39)
[2021-04-06] MEDS: INSULIN LISPRO 100 UNIT/ML SUB-Q SCH ×4 (18:26→22:41)
[2021-04-06] MEDS ORDERED: NON-FORMULARY EACH (Rosuvastatin (Nf) 10 MG Tablet) PO SCH (22:00)
[2021-04-06] MEDS: ENOXAPARIN 40 MG/0.4 ML INJ SUB-Q SCH (22:38)
[2021-04-06] MEDS: INSULIN GLARGINE 100 UNITS/ML SUB-Q SCH (22:41)
[2021-04-07 05:35] LABS: Basophils % (Auto) 0.4 % (0.0-1.8); Eosinophils # (Auto) 0.2 K/mm3 (0.0-0.4); Eosinophils % (Auto) 3.7 % (0.0-4.3); Hematocrit 32.5 % (30.3-42.9); Hemoglobin 10.4 gm/dl (10.1-14.3); Lymphocytes # (Auto) 2.7 K/mm3 (1.2-5.4); Mean Corpuscular HGB Conc 32 % (30-34); Mean Corpuscular Volume 80 fl (79-97); Monocytes # (Auto) 0.6 K/mm3 (0.0-0.8); Monocytes % (Auto) 9.6 % (0.0-7.3); Platelet Count 207 K/mm3 (140-440); Red Blood Count 4.08 M/mm3 (3.65-5.03); Red Cell Distribution Width 14.2 % (13.2-15.2)
[2021-04-07 05:50] LABS: Blood Urea Nitrogen 15 mg/dL (7-17); Calcium 8.9 mg/dL (8.4-10.2); Hemolysis Index 15
[2021-04-07 05:54] LABS: BUN/Creatinine Ratio 25
[2021-04-07] MEDS: hydrALAZINE 25 MG TAB PO SCH ×3 (06:52→22:04)
[2021-04-07] MEDS: INSULIN LISPRO 100 UNIT/ML SUB-Q SCH ×8 (08:35→22:05)
[2021-04-07] MEDS: carvediloL 25 MG TAB PO SCH ×2 (10:28→22:00)
--- NOTE | 2021-04-07 14:12 | Electrocardiograph Report ---
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
--- NOTE | 2021-04-07 19:39 | Progress Note ---
Assessment and Plan Assessment and plan: #Andrey Was admitted 20 days ago for similar symptoms, stroke work-up completed was negative CT brain this admission negative for acute findings - CBC/CMP unremarkable -TSH < 0.005, free T4: 1.84 - PT/OT consults -MRI brain ordered -Neurology consult placed #Hyperthyroidism -TSH < 0.005, free T4: 1.84 Follows with endocrinology at [place], has missed appointments, does not remember name of physician States that she used to take medication but has not in quite some time #Type 2 diabetes with hyperglycemia Home regimen Novolin 70/30 insulin 20 units twice daily Accu-Cheks AC at bedtime -Basal bolus regimen with Lantus and scheduled regular insulin with meals -Correctional insulin for coverage -Avoid olanzapine. -Hemoglobin A1c ordered #Right ankle injury -Swollen right ankle, patient states that this acquired from multiple falls -XR of ankle: Soft tissue swelling, osteoarthritis. No evidence of acute fracture #Hypertension -Resume home Coreg and hydralazine -Continued vital sign monitoring #Psychiatric disorder -Currently on olanzapine. Would recommend we discontinue this medication as it is not recommended in diabetics #Hyperlipidemia -Resume home rosuvastatin #Cocaine abuse Was admitted 12 days ago for cocaine induced metabolic encephalopathy UDS presumptive positive for cocaine Dispo: Work up pending with MRI brain. Neuro consult placed. likely discharge in next 24 to 48 hours if negative. Concerned for uncontrolled hyperthyroidism and patient off of medication. Case management has already started SNF placement process. History Interval history: I have seen and examined the patient at the bedside Patient's chart and medications reviewed Patient complains of some back pain MRI brain no acute abnormalities Vital signs noted Hospitalist Physical - Constitutional Vitals: Temp Pulse Resp BP Pulse Ox 98.2 F 82 18 139/67 100 04/07/21 16:09 04/07/21 16:09 04/07/21 16:09 04/07/21 16:09 04/07/21 16:09 General appearance: Present: no acute distress, well-nourished - EENT Eyes: Present: PERRL, EOM intact ENT: hearing intact, clear oral mucosa - Neck Neck: Present: supple, normal ROM - Respiratory Respiratory effort: normal Respiratory: bilateral: diminished, negative: rales, rhonchi, wheezing - Cardiovascular Rhythm: regular Heart Sounds: Present: S1 & S2 - Extremities Extremities: no ischemia, No edema - Abdominal General gastrointestinal: soft, non-tender, non-distended, normal bowel sounds - Integumentary Integumentary: Present: clear, warm - Psychiatric Psychiatric: appropriate mood/affect, cooperative - Neurologic Neurologic: CNII-XII intact, moves all extremities HEART Score - HEART Score Troponin: Troponin T < 0.010 ng/mL (0.00-0.029) 04/06/21 08:49 Results - Labs CBC & Chem 7: 04/07/21 04:48 04/07/21 04:48 Labs: Laboratory Last Values WBC 6.1 K/mm3 (4.5-11.0) 04/07/21 04:48 RBC 4.08 M/mm3 (3.65-5.03) 04/07/21 04:48 Hgb 10.4 gm/dl (10.1-14.3) 04/07/21 04:48 Hct 32.5 % (30.3-42.9) 04/07/21 04:48 MCV 80 fl (79-97) 04/07/21 04:48 MCH 26 pg (28-32) L 04/07/21 04:48 MCHC 32 % (30-34) 04/07/21 04:48 RDW 14.2 % (13.2-15.2) 04/07/21 04:48 Plt Count 207 K/mm3 (140-440) 04/07/21 04:48 Lymph % (Auto) 44.0 % (13.4-35.0) H 04/07/21 04:48 [place] % (Auto) 9.6 % (0.0-7.3) H 04/07/21 04:48 Eos % (Auto) 3.7 % (0.0-4.3) 04/07/21 04:48 Baso % (Auto) 0.4 % (0.0-1.8) 04/07/21 04:48 Lymph # (Auto) 2.7 K/mm3 (1.2-5.4) 04/07/21 04:48 [place] # (Auto) 0.6 K/mm3 (0.0-0.8) 04/07/21 04:48 Eos # (Auto) 0.2 K/mm3 (0.0-0.4) 04/07/21 04:48 Baso # (Auto) 0.0 K/mm3 (0.0-0.1) 04/07/21 04:48 Seg Neutrophils % 42.3 % (40.0-70.0) 04/07/21 04:48 Seg Neutrophils # 2.6 K/mm3 (1.8-7.7) 04/07/21 04:48 PT 13.4 Sec. (12.2-14.9) 04/06/21 08:49 INR 0.92 (0.87-1.13) 04/06/21 08:49 Sodium 140 mmol/L (137-145) 04/07/21 04:48 Potassium 4.2 mmol/L (3.6-5.0) 04/07/21 04:48 Chloride 107.7 mmol/L (98-107) H 04/07/21 04:48 Carbon Dioxide 21 mmol/L (22-30) L 04/07/21 04:48 Anion Gap 16 mmol/L 04/07/21 04:48 BUN 15 mg/dL (7-17) 04/07/21 04:48 Creatinine 0.6 mg/dL (0.6-1.2) 04/07/21 04:48 Estimated GFR > 60 ml/min 04/07/21 04:48 BUN/Creatinine Ratio 25 % 04/07/21 04:48 Glucose 132 mg/dL (65-100) H 04/07/21 04:48 POC Glucose 156 mg/dL (70-105) H 04/07/21 16:06 Hemoglobin A1c 8.6 % (4-6) H 04/06/21 08:49 Calcium 8.9 mg/dL (8.4-10.2) 04/07/21 04:48 Phosphorus 4.60 mg/dL (2.5-4.5) H 04/06/21 08:49 Magnesium 1.90 mg/dL (1.7-2.3) 04/06/21 08:49 Total Bilirubin 0.20 mg/dL (0.1-1.2) 04/06/21 08:49 AST 15 units/L (5-40) 04/06/21 08:49 ALT 16 units/L (7-56) 04/06/21 08:49 Alkaline Phosphatase 98 units/L (35-129) 04/06/21 08:49 Troponin T < 0.010 ng/mL (0.00-0.029) 04/06/21 08:49 Total Protein 7.3 g/dL (6.3-8.2) 04/06/21 08:49 Albumin 3.4 g/dL (3.9-5) L 04/06/21 08:49 Albumin/Globulin Ratio 0.9 % 04/06/21 08:49 TSH < 0.005 mlU/mL (0.270-4.200) L 04/06/21 08:49 Free T4 1.84 ng/dL (0.76-1.46) H 04/06/21 08:49 Urine Color Straw (Yellow) 04/06/21 Unknown Urine Turbidity Clear (Clear) 04/06/21 Unknown Urine pH 6.0 (5.0-7.0) 04/06/21 Unknown Ur Specific [place] 1.009 (1.003-1.030) 04/06/21 Unknown Urine Protein <15 mg/dl mg/dL (Negative) 04/06/21 Unknown Urine Glucose (UA) Neg mg/dL (Negative) 04/06/21 Unknown Urine Ketones Neg mg/dL (Negative) 04/06/21 Unknown Urine Blood Neg (Negative) 04/06/21 Unknown Urine Nitrite Neg (Negative) 04/06/21 Unknown Urine Bilirubin Neg (Negative) 04/06/21 Unknown Urine Urobilinogen < 2.0 mg/dL (<2.0) 04/06/21 Unknown Ur Leukocyte Esterase Neg (Negative) 04/06/21 Unknown Urine WBC (Auto) 1.0 /HPF (0.0-6.0) 04/06/21 Unknown Urine RBC (Auto) 1.0 /HPF (0.0-6.0) 04/06/21 Unknown U Epithel Cells (Auto) 10.0 /HPF (0-13.0) 04/06/21 Unknown Urine Bacteria (Auto) 1+ /HPF (Negative) 04/06/21 Unknown Urine Mucus Few /HPF 04/06/21 Unknown Urine Opiates Screen Negative 04/06/21 Unknown Urine Methadone Screen Negative 04/06/21 Unknown Ur Barbiturates Screen Negative 04/06/21 Unknown Ur Phencyclidine Scrn Negative 04/06/21 Unknown Ur Amphetamines Screen Negative 04/06/21 Unknown U Benzodiazepines Scrn Negative 04/06/21 Unknown Urine Cocaine Screen Negative 04/06/21 Unknown U Marijuana (THC) Screen Negative 04/06/21 Unknown Drugs of Abuse Note Disclamer 04/06/21 Unknown Coronavirus (PCR) Negative (Negative) 04/07/21 Unknown Velásquez/IV: Voiding Method Bedside Commode Active Medications - Current Medications Current Medications: Generic Name Dose Route Start Last Admin Trade Name Freq PRN Reason Stop Dose Admin Acetaminophen 650 mg 04/06/21 14:02 Acetaminophen 325 Mg Tab PO Q4H PRN Pain MILD(1-3)/Fever >100.5/WILKINSON Atorvastatin Calcium 20 mg 04/06/21 22:00 04/06/21 22:39 Atorvastatin 20 Mg Tab PO 20 mg QHS [facility] Administration Carvedilol 25 mg 04/06/21 15:00 04/07/21 10:28 Carvedilol 25 Mg Tab PO 25 mg BID ANDREW Administration Dextrose 50 ml 04/06/21 14:03 Dextrose 50% In Water (25gm) 50 Ml Syringe IV Q30MIN PRN Hypoglycemia Protocol Enoxaparin Sodium 40 mg 04/06/21 22:00 04/06/21 22:38 Enoxaparin 40 Mg/0.4 Ml Inj SUB-Q 40 mg QDAY@2200 [facility] Administration Protocol Hydralazine HCl 50 mg 04/06/21 16:00 04/07/21 13:24 Hydralazine 25 Mg Tab PO Not Given Q8HR [facility] Insulin Glargine 20 units 04/06/21 22:00 04/06/21 22:41 Insulin Glargine 100 Units/Ml SUB-Q 20 units QHS [facility] Administration Insulin Human Lispro 5 unit 04/06/21 16:30 04/07/21 16:40 Insulin Lispro 100 Unit/Ml SUB-Q Not Given ACHS [facility] Insulin Human Lispro 0 unit 04/06/21 16:30 04/07/21 16:50 Insulin Lispro 100 Unit/Ml SUB-Q 2 unit ACHS [facility] Administration Protocol Ondansetron HCl 4 mg 04/06/21 14:02 Ondansetron 4 Mg/2 Ml Inj IV Q8H PRN Nausea And Vomiting Oxycodone/Acetaminophen 1 tab 04/06/21 14:02 Oxycodone /Acetaminophen 5-325mg Tab PO Q6H PRN Pain, Moderate (4-6) Sodium Chloride 10 ml 04/06/21 22:00 04/07/21 10:29 Sodium Chloride 0.9% 10 Ml Flush Syringe IV Not Given BID ANDREW Sodium Chloride 10 ml 04/06/21 14:02 Sodium Chloride 0.9% 10 Ml Flush Syringe IV PRN PRN LINE FLUSH Nutrition/Malnutrition Assess - Dietary Evaluation Nutrition/Malnutrition Findings: Nutrition Notes Start: 04/06/21 14:55 Freq: Status: Active Protocol: Document 04/06/21 14:55 CHARY (Rec: 04/06/21 15:26 CHARY [id number]) Nutrition Notes Need for Assessment generated from: MD Order,Education Initial or Follow up Assessment Current Diagnosis Diabetes,Hypertension, Hyperlipidemia Other Pertinent Diagnosis AMS, ankle pain and swelling. Current Diet Consistent Carbohydrates Diet (since L 04/06). Labs/Tests 04/06: Cl 107.1, BUN 18, Glu 175, Phos 4.6, Alb 3.4. Pertinent Medications 04/06: Nutritionally unremarkable. Height 5 ft 8 in Weight 80 kg [place] Body Weight (kg) 63.63 BMI 26.8 Weight Status Overweight Subjective/Other Information RD consult for Diet education. Percent of energy/protein needs met: Prescribed Consistent Carbohydrate Diet provides for energy/protein needs (2,061 Kcal/91 g) during LOS. Burn Absent Trauma Absent GI Symptoms None Food Allergy No Skin Integrity/Comment Clear, warm, dry. #1 Nutrition Diagnosis Food and nutrition-related knowledge deficit Etiology Progression of multiple concomitant chronic metabolic conditions. As Evidenced by Signs and Symptoms Abnormal chemistry lab values, and medical diagnosis. Is patient on ventilator? No Is Patient Ambulatory and/or Out of Bed Yes REE-([place]-ambulatory/OOB) [ 1792.050 [id number]] Kcal/Kg value to use for calculation 25 Approximate Energy Requirements Using 2000 kcal/Kg Calculation Used for Recommendations Kcal/kg Additional Notes Protein: 1-1.2 g/Kg/day; 64-77 g/day; 256-308 Kcal/day (from IBW). Fluids: 1 ml/Kcal/day, or as per MD. Nutrition Intervention Change Diet Order: Continue Consistent Carbohydrates Diet. Teaching Recipient Primary Caregiver Learning Readiness No contact Teaching Methods Handout Education Handouts Provided AND: Metabolic Syndrome Menu, and Carbohydrate counting for people with diabetes. Barriers to Learning No Barriers RD phone number provided Yes Patient aware of follow up options Yes Goal #1 Maintain body weight within +/ -3% of current BWt during LOS. Goal #2 Reach and maintain acceptable chemistry lab values during LOS. Goal #3 Provide the Pt with educational tools to elicit behavioral changes towards a healthy lifestyle. Follow-Up By: 04/13/21 Additional Comments Continue monitoring food tolerance, %PO intake of meals , Hydration, and BM.
[2021-04-07] MEDS: ENOXAPARIN 40 MG/0.4 ML INJ SUB-Q SCH (21:59)
[2021-04-07] MEDS: INSULIN GLARGINE 100 UNITS/ML SUB-Q SCH (22:02)
[2021-04-08] MEDS: hydrALAZINE 25 MG TAB PO SCH (06:14)
[2021-04-08] MEDS: INSULIN LISPRO 100 UNIT/ML SUB-Q SCH ×4 (09:22→12:06)
[2021-04-08] MEDS: carvediloL 25 MG TAB PO SCH (10:48)
--- NOTE | 2021-04-08 10:53 | Discharge Summary ---
Providers - Providers Date of Admission: 04/06/21 16:40 Date of discharge: 04/08/21 Attending physician: HUGH VELAZQUEZ 04/06/21 10:08 Physical Therapy Evaluation and Treat [CONS] Urgent Comment: MARTÍN placement Reason For Exam: Multiple frequent falls 04/06/21 10:09 Occupational Therapy Evaluate and Treat [CONS] Urgent Comment: MARTÍN placement Reason For Exam: Multiple frequent falls 04/06/21 12:13 Physical Therapy Evaluation and Treat [CONS] Urgent Comment: Reason For Exam: AFO right foot 04/06/21 14:03 Consult to Dietitian/Nutrition [CONS] Routine Physician Instructions: Reason For Exam: Reason for Consult: Diet education 04/06/21 14:09 Consult to Physician [CONS] Routine Comment: Consulting Provider: JEANETTE STAFFORD Physician Instructions: Reason For Exam: Ataxia Primary care physician: FORTUNE TELLER Hospitalization Reason for admission: Unsteady gait/generalized weakness and dizziness/recurrent falls Condition: Fair Pertinent studies: CT head without contrast; no acute intracranial abnormality noted MRI brain; without contrast; no acute abnormality noted Right ankle x-ray; soft tissue swelling of the ankle greatest laterally no acute fracture ankle mortise is symmetric moderate posterior subtalar and mild ankle osteoarthritis Hospital course: 70-year-old -[place] female patient who was recently admitted and discharged on 03/29/2021 after being treated for encephalopathy was admitted through emergency room on 04/06/2021 with unsteady gait generalized weakness Patient was symptomatically managed CT head without contrast did not show any acute abnormalities, subsequently evaluated by neurologist, had MRI brain without contrast which was negative for any acute abnormality Patient received physical therapy who recommended subacute rehab, rolling walker and AFO to the right foot Case management has been processing for subacute rehab placement however today patient refused indicating that she would rather have home physical therapy and she wanted to go home on medications. And does not want subacute rehab placement I discussed with the case management who set up home PT rolling walker and AFO today patient is comfortable no new complaints vital signs stable Ambulatory without support and tolerating oral nutrition patient also has hyper thyroidism and follows with biomechanical engineer at [place] however has been noncompliant with medications I have given 15 pills of methimazole 10 mg p.o. daily and strongly advised to follow-up with her private biomechanical engineer per schedule we do not have biomechanical engineer in the hospital patient is hemodynamically and clinically stable at discharge today Patient advised to follow with neurologist in 1 to 2 weeks for further evaluation and management of her intermittent ataxia Stable at discharge. Discharge diagnosis: #Ataxia Was admitted 20 days ago for similar symptoms, stroke work-up completed was negative CT brain this admission negative for acute findings - CBC/CMP unremarkable -TSH < 0.005, free T4: 1.84 - PT/OT consults -MRI brain ordered -Neurology consult placed #Hyperthyroidism -TSH < 0.005, free T4: 1.84 Follows with endocrinology at [place], has missed appointments, does not remember name of physician States that she used to take medication but has not in quite some time #Type 2 diabetes with hyperglycemia Home regimen Novolin 70/30 insulin 20 units twice daily Accu-Cheks AC at bedtime -Basal bolus regimen with Lantus and scheduled regular insulin with meals -Correctional insulin for coverage -Avoid olanzapine. -Hemoglobin A1c ordered #Right ankle injury -Swollen right ankle, patient states that this acquired from multiple falls -XR of ankle: Soft tissue swelling, osteoarthritis. No evidence of acute fracture #Hypertension -Resume home Coreg and hydralazine -Continued vital sign monitoring #Psychiatric disorder -Currently on olanzapine. Would recommend we discontinue this medication as it is not recommended in diabetics #Hyperlipidemia -Resume home rosuvastatin #Cocaine abuse Was admitted 12 days ago for cocaine induced metabolic encephalopathy UDS presumptive positive for cocaine Stable at discharge Disposition: 06 HOME HEALTH CARE SERVICE Final Discharge Diagnosis (Prints w/discharge instructions): Unsteady gait/improved. Ataxia. History of recurrent falls. Type 2 diabetes mellitus. Hypertension. Hyperthyroidism. recreational drug use/cocaine Time spent for discharge: 35 min Core Measure Documentation - Palliative Care Palliative Care/ Comfort Measures: Not Applicable - Core Measures Any of the following diagnoses?: none Exam - Constitutional Vitals: Temp Pulse Resp BP Pulse Ox 98.4 F 81 18 137/71 97 04/08/21 08:05 04/08/21 08:05 04/08/21 08:05 04/08/21 08:05 04/08/21 08:05 General appearance: Present: no acute distress, well-nourished - EENT Eyes: Present: PERRL, EOM intact - Neck Neck: Present: supple, normal ROM - Respiratory Respiratory effort: normal Respiratory: bilateral: diminished, negative: rales, rhonchi, wheezing - Cardiovascular Rhythm: regular Heart Sounds: Present: S1 & S2 - Extremities Extremities: no ischemia, No edema - Abdominal General gastrointestinal: Present: soft, non-tender, non-distended, normal bowel sounds - Integumentary Integumentary: Present: clear, warm - Musculoskeletal Musculoskeletal: strength equal bilaterally - Psychiatric Psychiatric: appropriate mood/affect, cooperative - Neurologic Neurologic: moves all extremities Plan Activity: advance as tolerated, fall precautions Diet: diabetic Additional Instructions: Advised to comply with medications diet and follow-up visits. Patient advised to continue her home insulin as before. insulin Novolin 70/30 20 units subcu a.m. and 20 units subcu p.m. patient advised to follow with her private biomechanical engineer per schedule for her thyroid problems. If you have worsening symptoms contact MD or go to the nearest emergency room as needed. Advised to quit recreational drug use Follow up with: PRIMARY CARE, [Primary Care Provider] - 3-5 Days JEANETTE STAFFORD MD [Staff Physician] - 14 Days Forms: Discharge Signature Page Prescriptions: Methimazole [Tapazole] 10 mg PO DAILY #14 tablet
[2021-04-08 11:48] VITALS: BP 109/81
== END 2021-04-08 13:00 | disposition home or self-care (01) | DRG 93 ==
LOC: ED 06:52 → 3A 09:59 → INTOOBSV 09:59 → 4A 14:51 → OBSVTOIN 16:40
PROVIDERS: ADMIT Internal Medicine; ATTEND Internal Medicine
DX: R27.0 Ataxia, unspecified (principal); E05.90 Thyrotoxicosis, unspecified without thyrotoxic crisis or storm; R29.6 Repeated falls; M25.571 Pain in right ankle and joints of right foot; F20.9 Schizophrenia, unspecified; Z20.822 Contact with and (suspected) exposure to COVID-19; F01.50 Vascular dementia, unspecified severity, without behavioral disturbance, psychotic disturbance, mood disturbance, and anxiety; Z90.710 Acquired absence of both cervix and uterus; F32.9 Major depressive disorder, single episode, unspecified; E11.65 Type 2 diabetes mellitus with hyperglycemia; S99.911A Unspecified injury of right ankle, initial encounter; W18.39XA Other fall on same level, initial encounter; Y93.89 Activity, other specified; Y92.89 Other specified places as the place of occurrence of the external cause; Y99.8 Other external cause status; F14.10 Cocaine abuse, uncomplicated; E78.5 Hyperlipidemia, unspecified; Z88.6 Allergy status to analgesic agent
CPT/HCPCS: 36415; 70450; 70551; 80048; 80053; 80307; 81001; 82962; 83036; 83735; 84100; 84439; 84443; 84484; 85025; 85610; 93005; G0378; A9270-GY; J1650; J1815; U0003